=== PATIENT | male | born 1955 | race Caucasian/White ===

== ENCOUNTER → 2016-09-12 | Outpatient (CLI) | payer BC ==
[~2016-09-12] MED LIST: ASPI81TA28 PO; GLC/500 PO; OMEG10007 PO; SIMV40TA4 PO
[2016-09-12 10:43] LABS: BASO % 0.6 %; BASO ABS # 0.03 K/uL (0-0.2); COMPLETE YES; EOS % 7.4 %; HEMATOCRIT 48.5 % (42-52); IG% 0.2 %; LYMPH % 32.5 %; LYMPH ABS # 1.72 K/uL (1.2-3.4); MEAN CELL VOLUME 88.7 fL (80-100); MEAN CORPUSCULAR HEMOGLOBIN 30.7 pg (25-34); MEAN CORPUSCULAR HGB CONC 34.6 g/dl (32-36); MEAN PLATELET VOLUME 10.7 fL (7.4-10.4); MONO % 11.3 %; PLATELET COUNT 185 K/uL (130-400); RED BLOOD COUNT 5.47 M/uL (4.7-6.1)
[2016-09-12 10:50] LABS: ALT/SGPT 61 U/L (12-78); BLOOD UREA NITROGEN 17 mg/dl (7-18); BUN/CREATININE RATIO 16.9 (10-20); CARBON DIOXIDE 28 mmol/L (21-32); CHLORIDE 107 mmol/L (98-107); CHOLESTEROL 151 mg/dl (0-200); GLUCOSE 128 mg/dl (70-99); POTASSIUM 4.3 mmol/L (3.5-5.1); SODIUM 142 mmol/L (136-145); TRIGLYCERIDES 84 mg/dl (0-150); VERY LOW DENSITY LIPOPROT CALC 17 mg/dl
[2016-09-12 10:53] LABS: ALB/GLOB RATIO 1.4 (0.9-2); ALKALINE PHOSPHATASE 62 U/L (45-117); AST/SGOT 24 U/L (15-37); CHOLESTEROL/HDL RATIO 4.9; HDL CHOLESTEROL 31 mg/dl; LDL CHOLESTEROL CALCULATED 103 mg/dl
[2016-09-12 11:00] LABS: CALCIUM 8.8 mg/dl (8.5-10.1)
[2016-09-12 11:16] LABS: ESTIMATED AVERAGE GLUCOSE 120 mg/dl; HA1C FLAG Normal (Normal)
== END | disposition home or self-care (01) ==
LOC: C.LAB1850 09:01
PROVIDERS: ATTEND Nurse Practitioner Family
DX: E78.00 Pure hypercholesterolemia, unspecified (principal); E88.81 Metabolic syndrome and other insulin resistance; E66.3 Overweight; R73.9 Hyperglycemia, unspecified; F17.209 Nicotine dependence, unspecified, with unspecified nicotine-induced disorders

== ENCOUNTER → 2017-03-19 | Outpatient (CLI) | payer BC ==
[2017-03-19 09:46] LABS: ALT/SGPT 42 U/L (12-78); BLOOD UREA NITROGEN 17 mg/dl (7-18); BUN/CREATININE RATIO 19.7 (10-20); CALCIUM 8.5 mg/dl (8.5-10.1); CARBON DIOXIDE 28 mmol/L (21-32); CHLORIDE 109 mmol/L (98-107); CHOLESTEROL 128 mg/dl (0-200); CREATININE 0.87 mg/dl (0.60-1.40); GLUCOSE 124 mg/dl (70-99); SODIUM 143 mmol/L (136-145); TRIGLYCERIDES 105 mg/dl (0-150); VERY LOW DENSITY LIPOPROT CALC 21 mg/dl
[2017-03-19 09:49] LABS: ALB/GLOB RATIO 1.5 (0.9-2); ALKALINE PHOSPHATASE 52 U/L (45-117); AST/SGOT 18 U/L (15-37); CHOLESTEROL/HDL RATIO 4.1; HDL CHOLESTEROL 31 mg/dl; LDL CHOLESTEROL CALCULATED 76 mg/dl
== END | disposition home or self-care (01) ==
LOC: C.LAB1850 07:42
PROVIDERS: ATTEND Nurse Practitioner Family
DX: E78.00 Pure hypercholesterolemia, unspecified (principal); E88.81 Metabolic syndrome and other insulin resistance; R73.9 Hyperglycemia, unspecified

== ENCOUNTER 2017-05-24 11:42 | Emergency (ER) | payer OTHER ==
[~2017-05-24] VITALS: Ht 167.6 cm; Wt 87.0 kg
[~2017-05-24 11:42] MED LIST changes: +OSEL75CA12 PO
[2017-05-24 11:55] VITALS: TEMP 36.8; Ht 167.6 cm; Wt 87.0 kg
[2017-05-24] MEDS ORDERED: HYDROmorphone INJ 1 MG/ML SYR IV STA (12:55)
[2017-05-24] MEDS ORDERED: ONDANSETRON INJ 2 MG/ML 2 ML VIAL IV STA (12:55)
[2017-05-24] MEDS ORDERED: ACETAMINOPHEN 500 MG TAB PO STA (12:55)
[2017-05-24] MEDS ORDERED: SODIUM CHLORIDE 0.9% 500ML 500 ML IV STA (12:55)
[2017-05-24 13:26] LABS: BASO % 0.8 %; BASO ABS # 0.03 K/uL (0-0.2); EOS % 2.9 %; EOS ABS # 0.11 K/uL (0-0.5); LYMPH % 34.8 %; MEAN CELL VOLUME 85.4 fL (80-100); MEAN CORPUSCULAR HEMOGLOBIN 31.1 pg (25-34); MEAN CORPUSCULAR HGB CONC 36.4 g/dl (32-36); MEAN PLATELET VOLUME 10.3 fL (7.4-10.4); MONO % 8.8 %; MONO ABS # 0.33 K/uL (0.11-0.59); NEUT % 52.7 %; NEUT ABS # 1.97 K/uL (1.4-6.5); PLATELET COUNT 145 K/uL (130-400); RED CELL DISTRIBUTION WIDTH CV 13.1 % (11.5-14.5); WHITE BLOOD COUNT 3.74 K/uL (4.8-10.8)
[2017-05-24 13:43] LABS: ALBUMIN 3.6 gm/dl (3.4-5.0); CALCIUM 8.8 mg/dl (8.5-10.1); CREATININE 0.85 mg/dl (0.60-1.40); POTASSIUM 3.9 mmol/L (3.5-5.1)
[2017-05-24 13:46] LABS: TOTAL PROTEIN 6.9 gm/dl (6.4-8.2)
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
--- NOTE | 2017-05-24 14:28 | DIAGNOSTIC IMAGING REPORT ---
ABD/PELVIS WITHOUT FOR STONE CT DOSE: HISTORY: Flank pain Pt c/o abd pain TECHNIQUE: Multiaxial CT images of the abdomen and pelvis were performed without the use of intravenous and oral contrast according to the standard department stone protocol. A dose lowering technique was utilized adhering to the principles of ALARA. COMPARISON STUDY: None. FINDINGS: Minimal dependent basilar interstitial change. Configuration of liver spleen and pancreas are unremarkable. Left kidney has been surgically removed. Right kidney is negative for hydronephrosis. The right adrenal gland is unremarkable. Bowel pattern is nonobstructive. Bladder is midline. There is no free fluid within the pelvic cul-de-sac. Osseous structures are unremarkable. IMPRESSION: 1. Operative changes consistent with a prior left nephrectomy. 2. Study is otherwise unremarkable. The above report was generated using voice recognition software. It may contain grammatical, syntax or spelling errors. Electronically signed by: Dwayne Goode M.D. 05/24/2017 2:27 PM Dictated Date/Time: 05/24/2017 2:22 PM
[2017-05-24 14:34] VITALS: BP 137/84; PULSE 63; O2SAT 97
--- NOTE | 2017-05-24 14:35 | DIAGNOSTIC IMAGING REPORT ---
LUMBAR SPINE WITHOUT CT DOSE: 1409.79 mGy.cm HISTORY: Pain Pt c/o low back pain TECHNIQUE: Multiaxial CT images of the lumbar spine were performed and reformatted in the sagittal and coronal plane without the use of contrast. A dose lowering technique was utilized adhering to the principles of ALARA. COMPARISON: None. FINDINGS: No fractures. No subluxation. Paraspinal soft tissues are unremarkable. Disc spaces are well-preserved. IMPRESSION: Normal study The above report was generated using voice recognition software. It may contain grammatical, syntax or spelling errors. Electronically signed by: Dwayne Goode M.D. 05/24/2017 2:34 PM Dictated Date/Time: 05/24/2017 2:32 PM
[2017-05-24] MEDS ORDERED: LIDODERM (LIDOCAINE) PATCH 5% TD STA (14:42)
[2017-05-24] MEDS ORDERED: OXYC1TAB3 PO (14:44)
[2017-05-24] MEDS ORDERED: LDDP5 TD (14:45)
== END 2017-05-24 15:11 | disposition home or self-care (01) ==
LOC: C.EDB 11:43
DX: S39.012A Strain of muscle, fascia and tendon of lower back, initial encounter (principal); X58.XXXA Exposure to other specified factors, initial encounter; Z90.5 Acquired absence of kidney; Z79.82 Long term (current) use of aspirin; Z79.84 Long term (current) use of oral hypoglycemic drugs

== ENCOUNTER 2021-08-31 06:33 | Observation (INO) ==
--- NOTE | 2021-07-27 11:59 | PAT Medication Instructions ---
Medication Instructions Date of Service July 27, 2021 Home Medications Medication Instructions Recorded metformin 500 mg tablet 500 mg PO BID 90 Days #180 tab 01/30/21 ezetimibe 10 mg-simvastatin 80 mg 1 tab PO QPM #90 tab 01/31/21 tablet aspirin 81 mg tablet 81 mg PO QAM metformin 500 mg tablet 500 mg PO BID ezetimibe 10 mg-simvastatin 80 mg tablet 1 tab PO QPM omega 3-ihw-nem-fish oil 1,000 mg (120 mg-180 mg) capsule (Fish Oil) 1 cap PO BID tamsulosin 0.4 mg capsule (Flomax) 0.4 mg PO QPM STOP taking 2 weeks before surgery (or as soon as possible if surgery is within 2 weeks) omega 5-keo-cdq-fish oil 1,000 mg (120 mg-180 mg) capsule (Fish Oil) 1 cap PO BID DO NOT take the morning of surgery metformin 500 mg tablet 500 mg PO BID Take morning of surgery With a small sip of water, OTHERWISE NOTHING TO EAT OR DRINK AFTER MIDNIGHT: aspirin 81 mg tablet 81 mg PO QAM (continue as normal unless told otherwise by surgeon) Take evening before surgery metformin 500 mg tablet 500 mg PO BID ezetimibe 10 mg-simvastatin 80 mg tablet 1 tab PO QPM tamsulosin 0.4 mg capsule (Flomax) 0.4 mg PO QPM Other Notes If you have any questions please call us at [phone] or [phone] or [phone] or [phone]
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
[~2021-08-31 06:33] MED LIST changes: +ACETAMINOPHEN 500 MG TAB PO SCH; -ASPI81TA28 PO; +BUPIVACAINE 0.5 % 5 MG/1 ML PF 10ML VIAL ONE; +BUPIVACAINE LIPOSOME/PF 266 MG, BUPIVACAINE/EPINEPHRINE 50 ML, SODIUM CHLORIDE 0.9% 30 ... INFIL SCH; +FAMOTIDINE 20 MG TAB PO SCH; +GABAPENTIN 300 MG CAP PO SCH; -GLC/500 PO; +LR 500ML BOLUS, THEN 15ML/HR IV SCH; +LR 60ML/HR IV SCH; -OMEG10007 PO; -OSEL75CA12 PO; +ROPIVACAINE 0.5% 5 MG/ML 30 ML VIAL ONE; -SIMV40TA4 PO; +Scopolamine 1 MG TDSY TD SCH; +TRANEXAMIC ACID 1,000 MG **IV Intra-op IV SCH; +ceFAZolin 2000MG 2,000 MG/15 ML SYR IV SCH
--- NOTE | 2021-08-31 06:56 | History & Physical Bridge Note ---
Date of Service August 31, 2021 History & Physical Bridge Note I have examined the patient, reviewed the History & Physical and in the interval since the performance of the History & Physical I have noted the following changes of clinical significance: no changes noted
[2021-08-31] MEDS ORDERED: MIDAZOLAM HCL 1 MG/ML 2ML VIAL ONE (07:39)
[2021-08-31] MEDS ORDERED: fentaNYL citrate 100 MCG/2 ML VIAL ONE (07:40)
[2021-08-31] MEDS ORDERED: ONDANSETRON INJ 2 MG/ML 2 ML VIAL ONE (08:03)
[2021-08-31] MEDS ORDERED: dexAMETHasone 4 MG in SYRINGE 0 ML IV ONE (08:06)
[2021-08-31] MEDS ORDERED: DEXAMETHASONE SOD INJ 4 MG/ML VIAL ONE ×3 (08:07)
[2021-08-31] MEDS ORDERED: ATROPINE SULFATE 0.1 MG/ML 10ML SYR IV PRN ×3 (08:30→12:27)
[2021-08-31] MEDS ORDERED: KETOROLAC 30 MG/ML VIAL IV PRN (08:30)
[2021-08-31] MEDS ORDERED: ePHEDrine sulfate 50 MG/ML AMP IV PRN ×3 (08:30→12:27)
[2021-08-31] MEDS ORDERED: HYDROmorphone INJ 2 MG/ML SYR/VIAL IV PRN (08:30)
[2021-08-31] MEDS ORDERED: BUPIVACAINE/EPINEPHRINE 0.25% 1:200,000 30 ML VIAL ONE (08:40)
[2021-08-31] MEDS ORDERED: BUPIVACAINE LIPOSOME 1.3% 266 MG/20 ML VIAL ONE (08:40)
[2021-08-31] MEDS ORDERED: SODIUM CHLORIDE 0.9% PF 50 ML VIAL ONE (08:40)
[2021-08-31] MEDS ORDERED: LIDOCAINE 2% 2 ML VIAL/AMP(20MG/ML) INFIL ONE (09:30)
[2021-08-31] MEDS ORDERED: GLYCOPYRROLATE 0.2 MG/ML VIAL ONE (09:30)
[2021-08-31] MEDS ORDERED: PROPOFOL IV EMULSION 10 MG/ML 20 ML VIAL IV ONE (09:30)
[2021-08-31] MEDS ORDERED: KETOROLAC 30 MG/ML VIAL ONE (10:40)
--- NOTE | 2021-08-31 10:51 | Post Operative Brief Note ---
PG Immediate Post Op with CF Date of Surgery August 31, 2021 Pre & Post Diagnosis Operation Date: 08/31/21 08:50 Pre-Op Diagnosis: Left knee osteoarthritis. Post-Op Diagnosis: Left knee osteoarthritis. I identified the patient and participated in the time-out.: Yes Procedure Operation Date: 08/31/21 08:50 Actual Procedures p Left Total Knee Replacement(Left) - Rolo Ponce MD Surgeon Rolo Ponce MD Gun Stock Checker Yosef Calixto PA-C Estimated Blood Loss 50 Findings Consistent with Post-Op Diagnosis Specimens Specimen Description: A. Left knee bone and tissue. Drains Terrazas Catheter
--- NOTE | 2021-08-31 11:07 | XRay Report ---
XR knee LT 1 or 2V routine CLINICAL HISTORY: Postoperative evaluation. COMPARISON: Knee radiographs July 28, 2021. FINDINGS: Alignment of the total left knee arthroplasty is anatomic. There is no periprosthetic frac ture or unexpected radiopaque foreign body. There are skin long. IMPRESSION: Expected findings following total left knee arthroplasty. ACT 112: Negative or not required by law. Electronically signed by: Kamari Perales M.D. 08/31/2021 11:05 AM
--- NOTE | 2021-08-31 11:21 | Anesthesiology Progress Note ---
Date of Service August 31, 2021 Anesthesia Post Procedure Vital Signs Vital Signs: Temp Pulse Pulse Resp BP Pulse Ox 08/31/21 11:05 64 14 148/88 H 100 08/31/21 10:55 66 18 116/80 100 08/31/21 10:48 36.3 C L 73 18 130/73 93 08/31/21 06:45 36.8 C 62 18 151/99 H 97 Transfer of Care Handoff Completed per policy Notes Mental Status: alert / awake / arousable and participated in evaluation Nausea / Vomiting: adequately controlled Pain: adequately controlled Airway Patency, RR, SpO2: stable & adequate BP & HR: stable & adequate Hydration State: stable & adequate Neuraxial Anesthesia: was administered and sensory block is resolving Anesthetic Complications: no major complications apparent and Pt Satisfied with anesthetic care
--- NOTE | 2021-08-31 12:27 | Anesthesiology Progress Note ---
Date of Service August 31, 2021 Anesthesia Post Procedure Vital Signs Vital Signs: Temp Pulse Pulse Resp BP Pulse Ox 08/31/21 12:15 53 L 12 120/76 97 08/31/21 12:00 67 18 146/83 H 100 08/31/21 11:45 56 L 14 110/82 94 08/31/21 11:30 36.2 C L 58 L 18 139/85 98 08/31/21 11:15 58 L 16 120/79 100 08/31/21 11:05 64 14 148/88 H 100 08/31/21 10:55 66 18 116/80 100 08/31/21 10:48 36.3 C L 73 18 130/73 93 08/31/21 06:45 36.8 C 62 18 151/99 H 97 Transfer of Care Handoff Completed per policy Notes Mental Status: alert / awake / arousable and participated in evaluation Nausea / Vomiting: adequately controlled Pain: adequately controlled Airway Patency, RR, SpO2: stable & adequate BP & HR: stable & adequate Hydration State: stable & adequate Neuraxial Anesthesia: was administered and sensory block is resolving Anesthetic Complications: no major complications apparent and Pt Satisfied with anesthetic care
[2021-08-31] MEDS ORDERED: bisacodyL 10 MG SUPP PR PRN (12:34)
[2021-08-31] MEDS ORDERED: GLUCAGON FOR INJ 1 MG VIAL SQ PRN (12:34)
[2021-08-31] MEDS ORDERED: NALOXONE HCL 0.4 MG/1 ML VIAL/CARP IV PRN (12:34)
[2021-08-31] MEDS ORDERED: PHARMACY GLYCEMIC MGMT CONSULT PRN (12:34)
[2021-08-31] MEDS ORDERED: GLUCOSE 40% GEL 15 GM TUBE PO PRN (12:34)
[2021-08-31] MEDS ORDERED: GLUCOSE 10 TABS/TUBE PO PRN (12:34)
[2021-08-31] MEDS ORDERED: DEXTROSE 50% 50 ML SYRINGE IV PRN (12:34)
[2021-08-31] MEDS ORDERED: ALUMINUM/MAGNESIUM SUSP 30 ML UDC PO PRN (12:34)
[2021-08-31] MEDS ORDERED: ONDANSETRON INJ 2 MG/ML 2 ML VIAL IV PRN (12:34)
[2021-08-31] MEDS ORDERED: HYDROmorphone INJ 0.5 MG/0.5 ML SYR IV PRN (12:34)
[2021-08-31] MEDS ORDERED: CARBOHYDRATES FOR HYPOGLYCEMIA PO PRN (12:34)
[2021-08-31] MEDS ORDERED: MAGNESIUM HYDROXIDE SUSP 30 ML UDC PO PRN (12:34)
[2021-08-31] MEDS ORDERED: METOCLOPRAMIDE HCL INJ 5 MG/ML 2 ML VIAL IV PRN (12:34)
[2021-08-31] MEDS ORDERED: oxyCODONE HCL IR 5 MG TAB (IMMEDIATE RELEASE) PO PRN (12:34)
[2021-08-31] MEDS: INSULIN ASPART PER UNIT SC SCH ×3 (13:51→21:30)
[2021-08-31] MEDS: SODIUM CHLORIDE 0.9% 1000ML 1,000 ML IV SCH ×2 (14:43→16:18)
[2021-08-31] MEDS: ACETAMINOPHEN 500 MG TAB PO SCH ×2 (16:11→21:35)
[2021-08-31] MEDS: Scopolamine CHECK PATCH PLACEMENT SCH (16:12)
[2021-08-31] MEDS: ceFAZolin 2000MG 2,000 MG/15 ML SYR IV SCH (16:15)
[2021-08-31] MEDS: ASCORBIC ACID 500 MG TAB PO SCH (16:15)
[2021-08-31] MEDS ORDERED: NovoLIN-N (NPH) PER UNIT CHARGE SQ SCH (16:30)
[2021-08-31] MEDS ORDERED: TRANEXAMIC ACID / 0.7% NACL 1,000 MG/100 ML BAG IV SCH (16:45)
[2021-08-31] MEDS: KETOROLAC TROMETHAMINE 15 MG/ML VIAL IV SCH (17:03)
--- NOTE | 2021-08-31 17:19 | Operative Report ---
PG Post Operative Report Pre & Post Diagnosis Operation Date: 08/31/21 08:50 Pre-Op Diagnosis: Left knee osteoarthritis. Post-Op Diagnosis: Left knee osteoarthritis. I identified the patient and participated in the time-out.: Yes Procedure Operation Date: 08/31/21 08:50 Actual Procedures p Left Total Knee Replacement(Left) - Rolo Ponce MD Surgeon Rolo Ponce MD [employer] Engine Firer Yosef Calixto PA-C Estimated Blood Loss 50 Findings Consistent with Post-Op Diagnosis Operative findings revealed advanced left knee tricompartment DJD with grade 4 [id number] disease in all 3 compartments most severe in the medial side. Moderate-sized joint effusion. Osteophytes in all 3 compartments. Specimens Left knee sent for pathology. Anesthesia Type Spinal MAC Complications none Disposition Accompanied Patient To Recovery: No Indications Patient is 66-year-old male had a several year history of gradual progressive increasing left knee pain and discomfort. She became unresponsive conservative treatment. He elected to see with surgical management. Description of Procedure Operative implants consist of: 1. Biomet Vanguard size 65 left posterior stabilized femoral component. 2. Biomet size 71 tibial tray. 3. 10 mm posterior stabilized polyethylene insert. 4. 25 x 8 all probably patella. The patient was taken to the operating, identified, placed on the operating table supine position protectors were properly padded. IV antibiotics arrived by anesthesia team. A spinal anesthetic had been implemented holding area. Terrazas catheter was placed in sterile fashion. Left thigh turn was then placed in the left lower extremities and prepped and draped in usual sterile fashion. The left leg was elevated exsanguinated with use of an Esmarch in terms playset 3 mmHg. An anterior approach left knee was then performed to longitudinal incision centered over the patella. Sharp dissection Through subcutaneous tissue down to the extensor mechanism. Medial parapatellar arthrotomy incision was made. Subperiosteal dissection was carried out medially. The fat pad was dissected from Neath patella tendon. Lateral patellofemoral ligament was released. Patella subluxated laterally and the knee was flexed. The osteophytes were taken off distal femur. The ACL and PCL were then released from distal femur and tibia subluxated anteriorly. External tibial alignment jig was then placed in the interface the tibia and adjusted 14 mm medially. Proximal tibial cut was made but remove about a millimeter bone from most deficient aspect medial tibial plateau. The tibia was then sized to a size 71. Attention drawn the femur. The distal femur was entered with a sharp drill bit intramedullary canal was suction. A left 6 degree valgus cutting guide was placed. Distal femoral cutting block was pinned in place but distal femoral cut was made to take an additional 3 mm bone off distal femur. The femur was then sized to a size 65. The AP cutting block was pinned parallel to the epicondylar axis which was 4 degrees of external rotation. The anterior cut, anterior chamfer, posterior cut, posterior chamfer cuts made. Box cutting guide was placed in just slight lateral box cut was made. The knee was flexed. The remnants of the medial and lateral menisci were excised. The osteophytes were taken off the posterior as pect the femur. A trial femoral component was placed. Tibial tray was pinned in maximum external rotation and the drill and stem punch were used to create defect in proximal tibia for the tibial tray. Knee was then trialed and the 10 mm insert fit most appropriately. Attention drawn the patella. The patella was cleaned of all soft tissues. Patella thickness measured 18 mm and cut down to 13. Was sized to a size 25 patella. The lug holes were drilled for the 25 patella. The lateral osteophyte was removed. Patella button was placed. Knee was taken through range of motion patella tracked nicely with no thumbs test. Attention drawn to placing permanent components. All trial components were removed. Bone plug was placed in the distal femur limit blood loss. Double batch Palacos G cement was mixed. A Biomet Vanguard size 65 left posterior stabilized femoral component, a size 71 tibial tray, 10 mm posterior stabilized polyethylene insert, and a 25 x 8 all followed patella then cemented in place. The knee was brought out into full extension until cement hardened. Final cement check was then performed. The pericapsular tissues were injected with 100 cc of combination of 20 cc of Exparel, 30 cc normal saline, 50 cc of quarter percent Marcaine with epinephrine. The patient did receive 1 g tranexamic acid but the tourniquet was let down for final turn time 60 minutes but hemostasis assured use electrocautery. The extensor neck was then closed with combination 1 PDS suture #1 Vicryl suture in [id number] fashion. Extensor mechanism checked found to be intact the subcutaneous tissue then closed with 2 Dexon suture buried knot fashion skin was closed skin long. Leg was cleaned and dried a sterile dressing was Xeroform, 4 x 4's, sterile cast padding, Geovany bandage were applied. Patient then transferred to the recovery room in stable condition. Patient tolerated procedure well and there are no complications. Yosef Calixto, my physician district administrative assistant, was present for the entire procedure. His assistance was essential and required for appropriate patient positioning, prepping and draping, surgical exposure, performing the technical details of the operation, placement the implants, closure of the wound, and placement of the sterile bandage. I attest to the content of the Intraoperative Record and any orders documented therein. Any exceptions are noted below.
[2021-08-31] MEDS: DOCUSATE SODIUM 100 MG CAP PO SCH (20:30)
[2021-08-31] MEDS: ASPIRIN 81 MG ECTAB PO SCH (20:30)
[2021-08-31] MEDS: OMEGA-3 (PURIFIED FISH OIL) 1 GM CAP PO SCH (20:30)
[2021-08-31] MEDS: TAPENTADOL HCL ER 50 MG TABCR PO SCH (20:35)
[2021-08-31] MEDS ORDERED: TAMSULOSIN HCL 0.4 MG CAP PO SCH (21:00)
[2021-08-31] MEDS ORDERED: EZETIMIBE 10 MG TABLET PO SCH (21:00)
[2021-08-31] MEDS ORDERED: EZETIMIBE/SIMVASTATIN 10/80MG TAB PO SCH (21:00)
[2021-08-31] MEDS ORDERED: SIMVASTATIN 80 MG TAB PO SCH (21:00)
[2021-08-31] MEDS ORDERED: SENNA 8.6 MG TAB PO SCH (21:00)
[2021-09-01] MEDS: KETOROLAC TROMETHAMINE 15 MG/ML VIAL IV SCH ×3 (00:03→12:11)
[2021-09-01] MEDS: ceFAZolin 2000MG 2,000 MG/15 ML SYR IV SCH (00:05)
[2021-09-01] MEDS: Scopolamine CHECK PATCH PLACEMENT SCH ×2 (00:31→07:46)
[2021-09-01] MEDS: ACETAMINOPHEN 500 MG TAB PO SCH ×2 (05:56→14:52)
[2021-09-01 06:37] LABS: Hematocrit (blood only) 38.9 % (42-52); Hemoglobin 13.8 g/dL (14.0-18.0); Mean Corpuscular Hemoglobin 30.4 pg (25-34); Mean Corpuscular Hgb Conc 35.5 g/dL (32-36); Mean Corpuscular Volume 85.7 fL (80-100); Platelet Count 160 K/uL (130-400); Red Blood Count 4.54 M/uL (4.7-6.1)
[2021-09-01 07:11] LABS: Estimated Average Glucose 131 mg/dl; Hemoglobin A1C 6.2 % (4.5-5.6)
[2021-09-01 07:14] LABS: Calcium 8.1 mg/dl (8.5-10.1); Creatinine Clr Calc Pharmacy 81.1 ml/min; Est GFR (Non-African American) 86.3 ml/min; Potassium 3.7 mmol/L (3.5-5.1)
[2021-09-01] MEDS: TAPENTADOL HCL ER 50 MG TABCR PO SCH (07:46)
[2021-09-01] MEDS: ASPIRIN 81 MG ECTAB PO SCH (07:46)
[2021-09-01] MEDS: ASCORBIC ACID 500 MG TAB PO SCH (07:46)
[2021-09-01] MEDS: DOCUSATE SODIUM 100 MG CAP PO SCH (07:46)
[2021-09-01] MEDS: OMEGA-3 (PURIFIED FISH OIL) 1 GM CAP PO SCH (07:46)
--- NOTE | 2021-09-01 08:40 | Progress Notes ---
DATE OF NOTE: 09/01/2021. SUBJECTIVE: A 66-year-old gentleman postoperative day 1 from left knee replacement. He is doing pre tty well. His pain is controlled. Had a reasonable night. No chest pain or shortness of breath. N ot feeling dizzy or lightheaded. OBJECTIVE: VITAL SIGNS: Temperature is 36.6. Vital signs are stable. GENERAL: Shows a pleasant middle-aged male. He is lying in bed this morning looks pretty comfortabl e. LUNGS: Clear to auscultation. HEART: Regular rate and rhythm. ABDOMEN: Soft, nontender, nondistended. EXTREMITIES: Grossly neurovascularly intact except as follows. Examination of the left leg reveals the dressing to be clean, dry and intact. He can dorsiflex and p lantarflex his foot appropriately. He is neurologically intact. LABORATORY: Hemoglobin 13.8. Hematocrit 38.9. Electrolytes are stable. ASSESSMENT: A 66-year-old gentleman postoperative day 1 from a left knee replacement, doing pretty w ell. Pain is controlled. He is neurologically intact. PLAN: 1. DVT prophylaxis include thigh-high TEDs, SCDs, and aspirin twice a day. 2. PT, OT, weightbear as tolerated. Left total knee protocol. 3. Pain control, doing well with current pain regimen. 4. Disposition: Plan is to discharge to home with some home health later today if he does okay in t herapy. Job ID: [id number]
[2021-09-01] MEDS ORDERED: metFORMIN HCL 500 MG TAB PO SCH (09:00)
[2021-09-01] MEDS ORDERED: MULTIVITAMIN TAB PO SCH (09:00)
[2021-09-01] MEDS ORDERED: DOCUSATE SODIUM/SENNA 50/8.6MG TAB PO SCH (09:00)
[2021-09-01] MEDS: INSULIN ASPART PER UNIT SC SCH ×2 (09:15→12:36)
== END 2021-09-01 15:43 | disposition home health service (06) ==
LOC: ASU 06:33 → PACUINP 06:33 → 3N 14:47

== ENCOUNTER 2022-09-29 23:41 | Inpatient (IN) ==
[2022-09-30] MEDS ORDERED: HYDROmorphone INJ 0.5 MG/0.5 ML SYR IV PRN ×2 (00:29→05:04)
[2022-09-30] MEDS ORDERED: ONDANSETRON INJ 2 MG/ML 2 ML VIAL IV STA (00:29)
[2022-09-30 00:50] LABS: Basophils # (auto) 0.03 K/uL (0-0.2); Basophils % (auto) 0.3 %; Eosinophils # (auto) 0.11 K/uL (0-0.50); Eosinophils % (auto) 1.2 %; Hematocrit (blood only) 43.2 % (42.0-52.0); Hemoglobin 15.6 g/dl (14.0-18.0); Immature Granulocytes # (auto) 0.04 K/uL (0.01-0.20); Immature Granulocytes % (auto) 0.4 %; Lymphocytes # (auto) 1.42 K/uL (1.2-3.4); Lymphocytes % (auto) 15.7 %; Mean Corpuscular Hemoglobin 31.1 pg (25.0-34.0); Mean Corpuscular Hgb Conc 36.1 g/dL (32.0-36.0); Mean Corpuscular Volume 86.2 fL (80.0-100.0); Mean Platelet Volume 11.1 fL (9.4-12.4); Monocytes # (auto) 0.85 K/uL (0.11-0.59); Monocytes % (auto) 9.4 %; Neutrophils # (auto) 6.57 K/uL (1.40-6.50); Platelet Count 168 K/uL (130-400); RDW Coefficient of Variation 13.1 % (11.5-14.5); RDW Standard Deviation 40.2 fL (36.4-46.3); Red Blood Count 5.01 M/uL (4.70-6.10); White Blood Count 9.02 K/ul (4.8-10.8)
[2022-09-30 00:55] LABS: Albumin Globulin Ratio 1.8 (0.9-2); Albumin Level 4.1 gm/dl (3.4-5.0); BUN Creatinine Ratio 14.3 (10-20); Bilirubin,Total 1.5 mg/dl (0.2-1.0); Calcium 8.4 mg/dl (8.6-10.3); Creatinine Clr Calc Pharmacy 66.1 ml/min; Est GFR (African American) 83.5 ml/min; Est GFR (Non-African American) 72.1 ml/min; Globulin 2.3 gm/dl (2.5-4.0); Potassium 3.5 mmol/L (3.5-5.1); Total Protein 6.4 gm/dl (6.0-8.3)
--- NOTE | 2022-09-30 01:00 | Emergency Department Note ---
Impression & Plan Acute cholecystitis ED Provider Note INFORMANT: Patient and ED PROVIDER(S): Sourav Quinn MD CHIEF COMPLAINT: Right flank pain PLAN: Disposition: Admitted Condition: Good Outpatient prescription management: none Referral: None MEDICAL DECISION MAKING: Patient presented because of right flank pain. IV was established. He was given Zofran and Dilaudid for symptom control. Blood work and urinalysis ordered. CT imaging ordered. CT imaging did reveal findings concerning for possible cholecystitis. Patient was reassessed. He was still mildly tender in the right upper quadrant. He was feeling better after the Dilaudid. His bilirubin is mildly elevated but has been in the past. Other LFTs and other blood work was unremarkable. Urinalysis was negative. The patient was sent for an ultrasound imaging. This did raise concerns for calculus cholecystitis. IV Mefoxin was ordered. Patient was hydrated. Consultation was made with general surgery, Sunny Montoya PA-C. He will consult on the patient and asked for medicine admission. Consultation was made with Dr. Ramy Owens of the [facility] service. Patient was evaluated in the ER for further management. Discussed with systems project manager After review of the information above and other included data, I feel the patient requires admission. Triage Nursing notes reviewed and agree them. Vital Signs: reviewed and remarkable for mild hypertension Prior /Outside records reviewed: none Differential diagnosis: Renal colic, UTI, appendicitis, diverticulitis, mesenteric ischemia, aortic pathology, infections, inflammatory bowel disease, PUD, biliary pathology, as well as other pathologies. Diagnostics, as interpreted by me: ECG: Twelve-lead ECG reveals sinus rhythm with frequent PVCs at 81 bpm and the pattern of bigeminy. Left atrial lodgment. Nonspecific ST abnormality. Cardiac Monitoring: Cardiac monitoring ordered by me: The patient was placed on continuous cardiac monitoring and observed. It revealed a sinus rhythm at 82 bpm with frequent PVCs. Occasional bigeminy. Medical decision rules: none Imaging studies: CT and ultrasound imaging as above HPI: The patient is a 67year old male who presents to the Emergency Room with complaints of acute right flank pain. This started about 3 hours ago and is persisting. The patient also notes the following associated symptoms, nausea and vomiting. The patient has tried ice and Bengay for relieving factors. Current pain is rated as 10 patient has a history of nephrectomy but is unsure which side. No history of kidney stones./10. Pt denies LOC, headache, fevers, chills, diaphoresis, visual changes, neck pain, chest pain, breathing difficulties, abdominal pain, melena, hematochezia, urinary symptoms, numbness, weakness, lymphadenopathy, rash, or other complaints. PAST MEDICAL HISTORY: See Below, high cholesterol, LVH PAST SURGICAL HISTORY: See Below, nephrectomy SOCIAL HISTORY: See Below, HOME MEDICATIONS: See Below ALLERGIES: See Below VITALS: See Below PHYSICAL EXAMINATION: GENERAL: Awake, alert, well-appearing, in no distress HENT: Normocephalic, atraumatic. Oropharynx unremarkable. EYES: Normal conjunctiva. Sclera non-icteric. NECK: Inspection normal. Non-tender. Supple. No nuchal rigidity. FROM. No masses. RESPIRATORY: Clear to auscultation. No wheezes. No rales. Normal respiratory effort. CARDIAC: Normal rate. Normal rhythm. No murmurs. No rubs. Extremities warm and well perfused. Pulses equal. No JVD. GI: Soft, non-distended. Right upper quad tenderness to palpation. No rebound or guarding. No masses. RECTAL: Deferred. MUSCULOSKELETAL: Atraumatic. Chest examination reveals no tenderness. The back is symmetrical on inspection without obvious abnormality. There is right CVA tenderness to palpation. No joint edema. LOWER EXTREMITIES: Calves are equal size bilaterally and non-tender. No edema. No discoloration. NEURO: Normal sensorium. No sensory or motor deficits noted. SKIN: No rash or jaundice noted. Past Med/Surg History Medical History Encounter for pre-operative examination Exertional dyspnea History of colonic polyps Hypercholesterolemia Lumbar spondylosis LVH (left ventricular hypertrophy) Osteoarthritis Prediabetes Solitary kidney, acquired Urinary incontinence Surgical History H/O kidney removal H/O total knee replacement History of appendectomy History of colonoscopy History of tooth extraction Family History Father Myocardial infarction Mother Myocardial infarction Other No family history of adverse response to anesthesia Denies family history of Colon cancer Ovarian cancer Prostate cancer Breast cancer Social History Smoking Status: Never smoker Tobacco Type: Smokeless Tobacco (Dip or Chew) Age Quit Using Tobacco: 16; Second Hand Exposure: No; Do You Dip or Chew Tobacco: Yes; Hx Alcohol Use: Yes Alcohol type: beer Alcohol Intake Frequency: Monthly or Less Hx Substance Use: No Preferred Language: Cape Verdean Communication Ability: Effective Visual Impairment: No Limitations Hearing Ability: Normal Senior Catering Sales Manager Required: No Beliefs That Will Affect Care: None marital status: Current Living Situation: Spouse current occupational status: retired current occupation: Maintenance at [employer] Feels Safe at Home: Yes Childhood Exposure to Second-Hand Smoke: No Diet: regular Diet Comment: regular Dental Care, Regularly: Yes Physical Activity Frequency: Does not Exercise Seatbelt Use: sometimes Sunscreen Use: No Assistive Devices: Glasses and Walker Allergies Allergies Allergy/AdvReac Type Severity Reaction Status Date / Time No Known Drug Allergies Allergy . Verified 09/30/22 01:14 Home Meds Home Medications Medication Instructions Recorded Confirmed omega 7-fhs-ibk-fish oil 1,000 mg 1 cap PO BID 05/19/21 09/30/22 (120 mg-180 mg) capsule (Fish Oil) Previous Rx's Medication Instructions Recorded acetaminophen 500 mg capsule 1,000 mg PO TID Pain 30 days #180 08/29/21 caps aspirin 81 mg tablet,delayed 81 mg PO BID 45 days #90 tabs 08/29/21 release (Enedina Low Dose Aspirin) metformin 500 mg tablet 500 mg PO BID 90 days #180 tabs 04/24/22 ezetimibe 10 mg tablet 10 mg PO DAILY #90 tabs 04/25/22 simvastatin 80 mg tablet 80 mg PO DAILY #90 tabs 04/25/22 tamsulosin 0.4 mg capsule (Flomax) 0.4 mg PO DAILY #90 caps 06/20/22 Results & Data (ED) Vital Signs Vital Signs - 24 hr 09/29/22 23:46 09/30/22 00:53 09/30/22 01:05 Temperature 36.9 C Temperature Source Temporal Artery Scan Pulse Rate 46 L 81 Pulse Rate [Apical] 85 Respiratory Rate 18 16 Respiratory Effort / Characteristics Non-Labored Spontaneous Respiratory Depth Normal Respiratory Pattern Regular Blood Pressure 185/80 H Blood Pressure [Right Arm] 143/72 H Blood Pressure Mean 115 Blood Pressure Mean [Right Arm] 95 Pulse Oximetry 97 94 Oxygen Delivery Method Room Air Room Air Sepsis Recent Fever Within 48 Hours No Sepsis New/Unexplained Change in Mental Status No Sepsis Action Taken by Nursing No Action Required 09/30/22 01:26 Temperature Temperature Source Pulse Rate Pulse Rate [Apical] 82 Respiratory Rate 16 Respiratory Effort / Characteristics Respiratory Depth Respiratory Pattern Blood Pressure Blood Pressure [Right Arm] 157/73 H Blood Pressure Mean Blood Pressure Mean [Right Arm] 101 Pulse Oximetry 94 Oxygen Delivery Method Room Air Sepsis Recent Fever Within 48 Hours Sepsis New/Unexplained Change in Mental Status Sepsis Action Taken by Nursing Laboratory Data 09/29/22 00:06 09/29/22 00:06 Lab Results 09/29/22 09/29/22 09/30/22 Range/Units 00:06 00:06 01:20 WBC 9.02 (4.8-10.8) K/ul RBC 5.01 (4.70-6.10) M/uL Hgb 15.6 (14.0-18.0) g/dl Hct 43.2 (42.0-52.0) % MCV 86.2 (80.0-100.0) fL MCH 31.1 (25.0-34.0) pg MCHC 36.1 H (32.0-36.0) g/dL RDW Std Deviation 40.2 (36.4-46.3) fL RDW Coeff of Nayeli 13.1 (11.5-14.5) % Plt Count 168 (130-400) K/uL MPV 11.1 (9.4-12.4) fL Immature Gran % (Auto) 0.4 % Neut % (Auto) 73.0 % Lymph % (Auto) 15.7 % [place] % (Auto) 9.4 % Eos % (Auto) 1.2 % Baso % (Auto) 0.3 % Neut # (Auto) 6.57 H (1.40-6.50) K/uL Lymph # (Auto) 1.42 (1.2-3.4) K/uL Barbour # (Auto) 0.85 H (0.11-0.59) K/uL Eos # (Auto) 0.11 (0-0.50) K/uL Baso # (Auto) 0.03 (0-0.2) K/uL Immature Gran # (Auto) 0.04 (0.01-0.20) K/uL Sodium 138 (136-145) mmol/L Potassium 3.5 (3.5-5.1) mmol/L Chloride 106 (98-107) mmol/L Carbon Dioxide 23 (21-32) mmol/L Anion Gap 9 (3-11) BUN 15 (6-23) mg/dl Creatinine 1.05 (0.6-1.4) mg/dl Est Cr Clr Drug Dosing 66.1 ml/min Est GFR ( Amer) 83.5 ml/min Est GFR (Non-Af Amer) 72.1 ml/min BUN/Creatinine Ratio 14.3 (10-20) Glucose 194 H (70-99(Fasting)) mg/dl Calcium 8.4 L (8.6-10.3) mg/dl Total Bilirubin 1.5 H (0.2-1.0) mg/dl AST 19 (13-39) U/L ALT 23 (7-52) U/L Alkaline Phosphatase 51 (34-104) U/L Total Protein 6.4 (6.0-8.3) gm/dl Albumin 4.1 (3.4-5.0) gm/dl Globulin 2.3 L (2.5-4.0) gm/dl Albumin/Globulin Ratio 1.8 (0.9-2) Lipase 44 (11-82) U/L Urine Color Dark Yellow Urine Appearance Clear (Clear) Urine pH 6.0 (4.5-7.5) Ur Specific [place] 1.028 (1.000-1.030) Urine Protein 1+ H (Negative) Urine Glucose (UA) 3+ H (Negative) Urine Ketones 1+ H (Negative) Urine Blood Negative (Negative) Urine Nitrite Negative (Negative) Urine Bilirubin Negative (Negative) Urine Urobilinogen Negative (Negative) Ur Leukocyte Esterase Negative (Negative) Urine WBC (Auto) 1-5 (0-5) /hpf Urine RBC (Auto) 0-4 (0-4) /hpf U Hyaline Cast (Auto) 1-5 (0-5) /lpf U Epithel Cells (Auto) 5-10 H (0-5) /lpf Urine Bacteria (Auto) Negative (Negative) Administered Medications Hydromorphone HCl (Hydromorphone Inj 0.5 Mg/0.5 Ml Syr) 0.5 mg IV Q15M PRN PRN Reason: Pain Stop: 07/09/23 00:28 Last Admin: 09/30/22 00:48 Dose: 0.5 mg Documented By: DIONISIO Discontinued Medications Ondansetron HCl (Ondansetron Inj 2 Mg/Ml 2 Ml Vial) 4 mg IV NOW STA Stop: 09/30/22 00:30 Last Admin: 09/30/22 00:48 Dose: 4 mg Documented By: DIONISIO Imaging Data Radiologist's Impression: Abdomen/Pelvis CT 09/30/22 00:29 Exam(s): CT ABDOMEN + PELVIS Without Contrast EXAM: CT Abdomen and Pelvis Without Intravenous Contrast CLINICAL HISTORY: Reason for exam: right flank pain, hx of nephrectomy. TECHNIQUE: Axial computed tomography images of the abdomen and pelvis without intravenous contrast. CTDI is 24.23 mGy and DLP is 1274.68 mGy-cm. Automated exposure control was utilized for the study. A dose lowering technique was utilized adhering to the principles of ALARA. COMPARISON: Dated 05/24/17 FINDINGS: Lung bases: Unremarkable. No mass. No consolidation. ABDOMEN: Liver: Unremarkable. Gallbladder and bile ducts: Cholelithiasis with mild stranding near the gallbladder neck, please correlate with any concern for acute cholecystitis. No ductal dilation. Pancreas: Unremarkable. No ductal dilation. Spleen: Unremarkable. No splenomegaly. Adrenals: Unremarkable. No mass. Kidneys and ureters: Status post left nephrectomy. No urolithiasis. Stomach and bowel: Unremarkable. No obstruction. No mucosal thickening. PELVIS: Appendix: No findings to suggest acute appendicitis. Bladder: Unremarkable. No stones. Reproductive: Unremarkable as visualized. ABDOMEN and PELVIS: Intraperitoneal space: Unremarkable. No free air. No significant fluid collection. Bones/joints: Degenerative change of the thoracolumbar spine. No acute fracture. No dislocation. Soft tissues: Unremarkable. Vasculature: Unremarkable. No abdominal aortic aneurysm. Lymph nodes: Unremarkable. No enlarged lymph nodes. IMPRESSION: 1. No urolithiasis. 2. Cholelithiasis with additional findings concerning for acute cholecystitis, right upper quadrant ultrasound can be considered for further evaluation as warranted. Electronically signed by: Thanh Esteves MD 09/30/22 01:39 AM Gallbladder Ultrasound 09/30/22 01:51 Exam(s): US GALLBLADDER EXAM: US Abdomen Limited, Gallbladder CLINICAL HISTORY: Reason for exam: CT concerning for cholecystitis. TECHNIQUE: Real-time ultrasound of the right upper quadrant with image documentation. COMPARISON: No relevant prior studies available. FINDINGS: Gallbladder: The gallbladder is distended with wall thickening and cholelithiasis. Common bile duct: Unremarkable as visualized. No stones. No dilation. Pancreas: Unremarkable as visualized. IMPRESSION: Findings compatible with acute calculous cholecystitis in the appropriate clinical setting. Electronically signed by: Thanh Esteves MD 09/30/22 02:32 AM Discharge Plan Visit Data Chief Complaint: Back Injury/Pain Stated Complaint: BACK PAIN ED Provider: Sourav Quinn Discharge Problem: Acute cholecystitis Forms Stand Alone Forms: [facility] Prescriptions Prescriptions: No Action acetaminophen 500 mg capsule 1,000 mg PO TID 30 Days Qty: 180 0RF Rx Instructions: Take 3 times per day to lessen pain. aspirin [Enedina Low Dose Aspirin] 81 mg tablet,delayed release (DR/EC) 81 mg PO BID 45 Days Qty: 90 0RF Rx Instructions: Take to prevent blood clots. metformin 500 mg tablet 500 mg PO BID 90 Days Qty: 180 3RF simvastatin 80 mg tablet 80 mg PO DAILY Qty: 90 3RF ezetimibe 10 mg tablet 10 mg PO DAILY Qty: 90 3RF tamsulosin [Flomax] 0.4 mg capsule 0.4 mg PO DAILY Qty: 90 1RF omega 7-vua-ouf-fish oil [Fish Oil] 1,000 mg (120 mg-180 mg) capsule 1 cap PO BID Referrals Referrals: John Floyd III, CRNP [Primary Care Provider] -
--- NOTE | 2022-09-30 01:40 | CT Scan Report ---
Exam(s): CT ABDOMEN + PELVIS Without Contrast EXAM: CT Abdomen and Pelvis Without Intravenous Contrast CLINICAL HISTORY: Reason for exam: right flank pain, hx of nephrectomy. TECHNIQUE: Axial computed tomography images of the abdomen and pelvis without intravenous contrast. CTDI is 24.23 mGy and DLP is 1274.68 mGy-cm. Automated exposure control was utilized for the study. A dose lowering technique was utilized adhering to the principles of ALARA. COMPARISON: Dated 05/24/17 FINDINGS: Lung bases: Unremarkable. No mass. No consolidation. ABDOMEN: Liver: Unremarkable. Gallbladder and bile ducts: Cholelithiasis with mild stranding near the gallbladder neck, please correlate with any concern for acute cholecystitis. No ductal dilation. Pancreas: Unremarkable. No ductal dilation. Spleen: Unremarkable. No splenomegaly. Adrenals: Unremarkable. No mass. Kidneys and ureters: Status post left nephrectomy. No urolithiasis. Stomach and bowel: Unremarkable. No obstruction. No mucosal thickening. PELVIS: Appendix: No findings to suggest acute appendicitis. Bladder: Unremarkable. No stones. Reproductive: Unremarkable as visualized. ABDOMEN and PELVIS: Intraperitoneal space: Unremarkable. No free air. No significant fluid collection. Bones/joints: Degenerative change of the thoracolumbar spine. No acute fracture. No dislocation. Soft tissues: Unremarkable. Vasculature: Unremarkable. No abdominal aortic aneurysm. Lymph nodes: Unremarkable. No enlarged lymph nodes. IMPRESSION: 1. No urolithiasis. 2. Cholelithiasis with additional findings concerning for acute cholecystitis, right upper quadrant ultrasound can be considered for further evaluation as warranted. Electronically signed by: Thanh Esteves MD 09/30/22 01:39 AM
[2022-09-30 01:49] LABS: Appearance Urine Clear (Clear); Bacteria Urine Automated Negative (Negative); Bilirubin Urine Negative (Negative); Blood Urine Negative (Negative); Color Urine Dark Yellow; Glucose Urine UA 3+ (Negative); Ketones Urine 1+ (Negative); Leukocyte Esterase Urine Negative (Negative); Nitrite Urine Negative (Negative); Protein Urine 1+ (Negative); RBC Urine Automated 0-4 /hpf (0-4); Specific Gravity Urine 1.028 (1.000-1.030); Urobilinogen Urine Negative (Negative)
--- NOTE | 2022-09-30 02:33 | Ultrasound Report ---
Exam(s): US GALLBLADDER EXAM: US Abdomen Limited, Gallbladder CLINICAL HISTORY: Reason for exam: CT concerning for cholecystitis. TECHNIQUE: Real-time ultrasound of the right upper quadrant with image documentation. COMPARISON: No relevant prior studies available. FINDINGS: Gallbladder: The gallbladder is distended with wall thickening and cholelithiasis. Common bile duct: Unremarkable as visualized. No stones. No dilation. Pancreas: Unremarkable as visualized. IMPRESSION: Findings compatible with acute calculous cholecystitis in the appropriate clinical setting. Electronically signed by: Thanh Esteves MD 09/30/22 02:32 AM
[2022-09-30] MEDS ORDERED: cefOXitin 2,000 MG/60 ML BAG IV STA (02:39)
[2022-09-30] MEDS ORDERED: SODIUM CHLORIDE 0.9% 1000ML 500 ML IV ONE (02:40)
[2022-09-30] MEDS ORDERED: SODIUM CHLORIDE 0.9% 1000ML 1,000 ML IV SCH (02:45)
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
[2022-09-30 03:25] LABS: Magnesium 1.7 mg/dl (1.7-2.4)
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
[2022-09-30] MEDS ORDERED: GLUCAGON FOR INJ 1 MG VIAL SQ PRN (05:04)
[2022-09-30] MEDS ORDERED: ONDANSETRON INJ 2 MG/ML 2 ML VIAL IV PRN ×2 (05:04→10:37)
[2022-09-30] MEDS ORDERED: GLUCOSE 10 TAB/TUBE PO PRN (05:04)
[2022-09-30] MEDS ORDERED: GLUCOSE 40% GEL 15 GM TUBE PO PRN (05:04)
[2022-09-30] MEDS ORDERED: DEXTROSE 50% 50 ML SYRINGE IV PRN (05:04)
[2022-09-30] MEDS ORDERED: CARBOHYDRATES FOR HYPOGLYCEMIA PO PRN (05:04)
[2022-09-30] MEDS: NSS + 20MEQ KCL 20 MEQ/1,000 ML BAG IV SCH ×2 (05:53→23:16)
[2022-09-30] MEDS ORDERED: MAGNESIUM SULFATE / D5W 1 GM/100 ML BAG IV ONE (06:13)
[2022-09-30] MEDS: INSULIN ASPART PER UNIT CHARGE SC SCH ×4 (06:26→20:50)
[2022-09-30] MEDS ORDERED: LIDOCAINE 1%/EPINEPHRINE 1:100,000 20 ML VIAL ONE ×2 (06:49→08:42)
[2022-09-30] MEDS: cefTRIAXone SODIUM 2,000 MG in DEXTROSE 5% 50 ML IV SCH (08:48)
--- NOTE | 2022-09-30 08:53 | Hospitalist Progress Note ---
Date of Service September 30, 2022 Assessment & Plan (1) Acute cholecystitis: Plan: Acute cholecystitis- To OR 09/30/22 Dr Weller for lap [email or web address] Ceftriaxone 2 g IV daily NSS + KCl 20 mill equivalents at 80 mils per hour Zofran 4 mg IV every 6 hours as needed Pantoprazole 40 mg IV daily Dilaudid 0.5 mg IV every 3 hours as needed for moderate to severe pain (2) Frequent PVCs: Plan: Frequent PVCs/occasional bigeminy/occasional trigeminy- Followed on telemetry Evaluated by cardiology in May 30 although stress is not reach 85%- predicted cardiology felt there was no warrant for increased risk assessment with interventional procedures and deemed his dyspnea to noncardiogenic at that time Replete electrolytes Consult cardiology (3) Hyperglycemia: Plan: Typically on metformin for metabolic syndrome, insulin sliding scale will be used while n.p.o. inpatient Patient's A1c has never been higher than mid sixes last check was 5.8 (4) BPH w urinary obs/LUTS: Plan: Patient is holding tamsulosin due to n.p.o. status Admission and Anticipated Discharge Date Admission Date: September 30, 2022 Subjective Patient seen postoperatively in the company of his he is still groggy from anesthesia Physical Exam Physical Exam: Reviewed from anesthesia but able to wake up and answer questions Cardiac exam sounds to be regular although history of bigeminy and trigeminy Lungs are clear without wheezes or crackles Results & Data Results & Data Vital Signs (Past 12 Hours) Vital Signs Temp Pulse Pulse Pulse Resp BP BP 09/30/22 08:11 98.8 F 79 18 144/71 H 09/30/22 05:33 82 09/30/22 05:18 81 09/30/22 05:10 100.0 F H 93 H 20 152/87 H 09/30/22 04:30 86 16 132/83 09/30/22 04:14 99 H 18 116/79 09/30/22 04:02 09/30/22 03:29 85 18 155/69 H 09/30/22 02:26 86 16 155/70 H 09/30/22 01:26 82 16 157/73 H 09/30/22 01:05 81 09/30/22 00:53 85 16 143/72 H 09/29/22 23:46 98.4 F 46 L 18 185/80 H Pulse Ox O2 Del Method 09/30/22 08:11 95 Room Air 09/30/22 05:33 09/30/22 05:18 09/30/22 05:10 96 Room Air 09/30/22 04:30 92 Room Air 09/30/22 04:14 93 Room Air 09/30/22 04:02 91 Room Air 09/30/22 03:29 95 Room Air 09/30/22 02:26 95 Room Air 09/30/22 01:26 94 Room Air 09/30/22 01:05 09/30/22 00:53 94 Room Air 09/29/22 23:46 97 Room Air PG Care Time/CCT Total # of Minutes Spent Total Time Spent with Patient: Total time spent is greater than 50% in coordination of care (as documented) at patient's floor/unit and/or counseling patient: Coding Level of Care Code None Diagnoses Acute cholecystitis K81.0 Frequent PVCs I49.3 Hyperglycemia R73.9 BPH w urinary obs/LUTS N40.1; N13.8
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
[2022-09-30] MEDS ORDERED: NALOXONE HCL 0.4 MG/1 ML VIAL/CARP IV PRN (10:37)
[2022-09-30] MEDS ORDERED: PROMETHAZINE HCL 12.5 MG in SODIUM CHLORIDE 0.9% 50 ML IV PRN (10:37)
[2022-09-30] MEDS ORDERED: ATROPINE SULFATE 0.1 MG/ML 10ML SYR IV PRN (10:37)
[2022-09-30] MEDS ORDERED: ePHEDrine sulfate 50 MG/ML AMP IV PRN (10:37)
[2022-09-30] MEDS ORDERED: HYDROmorphone INJ 1 MG/ML SYRINGE IV PRN (10:37)
[2022-09-30] MEDS ORDERED: LABETALOL HCL IV 5 MG/ML 20ML IV PRN (10:37)
[2022-09-30] MEDS ORDERED: FLUMAZENIL 0.1 MG/1 ML 10 ML VIAL IV PRN (10:37)
[2022-09-30] MEDS ORDERED: fentaNYL citrate PF 100 MCG/2 ML VIAL IV PRN (10:37)
[2022-09-30] MEDS ORDERED: fentaNYL citrate PF 100 MCG/2 ML VIAL ONE ×3 (10:39→11:38)
--- NOTE | 2022-09-30 10:45 | XCELERA ---
[id number]
[2022-09-30] MEDS ORDERED: PANTOprazole 40 MG in SYRINGE 0 ML IV SCH (11:00)
[2022-09-30] MEDS ORDERED: PHENYLEPHRINE 100MCG/ML 5ML SYR ONE (11:08)
[2022-09-30] MEDS ORDERED: SUGAMMADEX SODIUM 200 MG/2 ML VIAL IV ONE ×2 (11:08→12:31)
[2022-09-30] MEDS ORDERED: DEXAMETHASONE SOD INJ 4 MG/ML VIAL ONE (11:08)
[2022-09-30] MEDS ORDERED: PROPOFOL IV EMULSION 10 MG/ML 20 ML VIAL IV ONE ×2 (11:08→11:09)
[2022-09-30] MEDS ORDERED: ROCURONIUM BROMIDE 10 MG/ML 5 ML VIAL IV ONE (11:08)
[2022-09-30] MEDS ORDERED: SUCCINYLCHOLINE CHLORIDE 20 MG/ML 10 ML VIAL IV ONE (11:08)
[2022-09-30] MEDS ORDERED: ONDANSETRON INJ 2 MG/ML 2 ML VIAL ONE (11:08)
[2022-09-30] MEDS ORDERED: OPTIRAY 320 100ml IV PRN (11:10)
[2022-09-30] MEDS ORDERED: OPTIRAY 350 IV PRN (11:29)
--- NOTE | 2022-09-30 12:11 | Fluoroscopy Report ---
[place] cholangiogram OR CLINICAL HISTORY: Laparoscopic cholecystectomy. COMPARISON STUDY: CT of the abdomen and pelvis and right upper quadrant ultrasound September 30, 2022. FLUOROSCOPY TIME: 2.2 seconds. Ka, r: 0.55 mGy FLUOROSCOPIC IMAGES: 3 FINDINGS: Fluoroscopy was provided during intraoperative cholangiogram. No filling defects are identi fied within the common bile duct to suggest choledocholithiasis. There is opacification of the duoden um. Visualized portions of the opacified intrahepatic bile ducts are unremarkable. IMPRESSION: No evidence for choledocholithiasis. ACT 112: Negative or not required by law. Electronically signed by: Kamari Perales M.D. 09/30/2022 12:10 PM
--- NOTE | 2022-09-30 12:25 | Post Operative Brief Note ---
Immediate Post Op Note v1 Date of Surgery September 30, 2022 Pre & Post Diagnosis Operation Date: 09/30/22 09:00 Pre-Op Diagnosis: ACUTE CALCULOUS CHOLECYSTITIS, FREQUENT PVC's Post-Op Diagnosis: ACUTE CALCULOUS CHOLECYSTITIS, FREQUENT PVC's I identified the patient and participated in the time-out.: Yes Procedure Operation Date: 09/30/22 09:00 Actual Procedures p Laparoscopic Cholecystectomy with Cholangiogram(Not Applicable) - Rivera Weller MD, FACS Surgeon Rivera Weller MD, FACS Industrial Machine System Technician 0 Estimated Blood Loss 30 Findings Consistent with Post-Op Diagnosis
--- NOTE | 2022-09-30 12:48 | Operative Report ---
PG Post Operative Report Pre & Post Diagnosis Operation Date: 09/30/22 09:00 Pre-Op Diagnosis: ACUTE CALCULOUS CHOLECYSTITIS, FREQUENT PVC's Post-Op Diagnosis: ACUTE CALCULOUS CHOLECYSTITIS, FREQUENT PVC's I identified the patient and participated in the time-out.: Yes Procedure Operation Date: 09/30/22 09:00 Actual Procedures p Laparoscopic Cholecystectomy with Cholangiogram(Not Applicable) - Rivera Weller MD, FACS Patient was brought into the operating theater supine position general trach anesthesia the abdomen was prepped and I scrubbed solution properly draped a timeout was had patient identified patient had a very small umbilical hernia at the greater and palpating from externally could be probably a centimeter and most therefore we will transverse incision was made here deepened to subcutaneous tissue with a hemostat we entered the abdominal cavity easily followed by 5 mm trocar CO2 insufflated were then able to identify the patient had relatively free abdominal adhesions even though he had a bilateral chevron incision from previous colon resection and nephrectomy performed right realization we placed a 5 mm epigastric and two 5 mm subcostal ports with preemptive local analgesia 0.5% Marcaine we identified that at the chevron incision just right of the falciform ligament there were some adhesions we took us down so we can expose just lateral to the falciform ligament were replaced a 5 mm trocar gallbladder was visualized actually had this some staining of bile and there is a border between the gallbladder wall and the liver indicating significant disease and inflammation that was tense therefore the lateral trocar site that no upper quadrant was used elevated the gallbladder then we used an aspirating needle and was able to significantly decompressed the tense gallbladder so we were able to grasp it where the needle had gone into the gallbladder to prevent any significant seepage of stones or debris and we dissected our way up to the neck of the gallbladder and edema was significant that we was easily made with dissection to by stripping we then we identified the cystic duct that it was coming off the gallbladder at its takeoff using a 5- minute clip we placed the at approximately #4 urethral catheter was inserted on 3 abdominal wall and a 14 Angiocath placed making a small opening in the cystic duct Cholangiocath was position that showed free flow into the duodenum was we injected the dye with no obstruction. The cholangiocatheter was then removed the cystic duct was doubly clipped and divided the cystic artery was similar identified doubly clipped and divided the gallbladder was mostly bluntly removed from the posterior peritoneum although there was few areas of necrosis I can see the whitish discoloration in the gallbladder and the liver bed area small opening was made stones were actually extracted these were caviar type of stones most of them we was retracted at the end of the procedure the gallbladder was removed completely from the liver was placed in an Endopouch and taken out intact through the epigastric port we did cultures for aerobes and anaerobes. Once this been completed the subhepatic suprahepatic area was then suctioned copiously making sure hemostasis was excellent and the free as much of the bilirubinate of type stones as possible I elected to drain the area with #19 Imtiaz drain that was placed subhepatic exiting out the trocar site in the right upper quadrant distention skin edge with 2-0 silk. At this point we placed the camera prior to placing the Juni-Ibarra in the right upper quadrant to visualize her initial opening in the umbilical area and no adhesions were identified in the anterior abdominal wall there individual trocars removed under direct visualization the last umbilical trocar the opening and crater of the umbilical area we freed up sufficiently that we closed this with interrupted 0 Vicryl sutures x2 this was essentially a small umbilical hernia. Subcutaneous tissue was brought back with 3-0 Vicryl and 4-0 Monocryl Steri-Strips applied procedure was tolerated well by the patient estimate blood loss 5 cc Surgeon Rivera Weller MD, FACS Cupola Tapper Helper 0 Estimated Blood Loss 30 Findings Consistent with Post-Op Diagnosis Specimens Gallbladder and cannot Drains 19 Imtiaz Indications Acute cholecystitis Description of Procedure merda I attest to the content of the Intraoperative Record and any orders documented therein. Any exceptions are noted below.
--- NOTE | 2022-09-30 14:13 | Anesthesiology Progress Note ---
Date of Service September 30, 2022 Anesthesia Post Procedure Vital Signs Vital Signs: Temp Pulse Pulse Pulse Resp BP BP 09/30/22 13:48 36.7 C 64 18 121/76 09/30/22 13:35 88 20 133/71 09/30/22 13:25 95 H 22 129/65 09/30/22 13:15 36.6 C 89 18 138/66 09/30/22 13:05 89 22 128/71 09/30/22 12:55 94 H 22 148/81 H 09/30/22 12:45 36.1 C L 76 14 172/64 H 09/30/22 08:11 37.1 C 79 18 144/71 H 09/30/22 05:33 82 09/30/22 05:18 81 09/30/22 05:10 37.8 C H 93 H 20 152/87 H 09/30/22 04:30 86 16 132/83 09/30/22 04:14 99 H 18 116/79 09/30/22 04:02 09/30/22 03:29 85 18 155/69 H 09/30/22 02:26 86 16 155/70 H 09/30/22 01:26 82 16 157/73 H 09/30/22 01:05 81 09/30/22 00:53 85 16 143/72 H 09/29/22 23:46 36.9 C 46 L 18 185/80 H Pulse Ox O2 Del Method O2 Flow Rate 09/30/22 13:48 91 Nasal Cannula 3 09/30/22 13:35 94 Nasal Cannula 3 09/30/22 13:25 95 Nasal Cannula 3 09/30/22 13:15 94 Nasal Cannula 3 09/30/22 13:05 98 Oxymask 8 09/30/22 12:55 96 Oxymask 12 09/30/22 12:45 92 Oxymask 15 09/30/22 08:11 95 Room Air 09/30/22 05:33 09/30/22 05:18 09/30/22 05:10 96 Room Air 09/30/22 04:30 92 Room Air 09/30/22 04:14 93 Room Air 09/30/22 04:02 91 Room Air 09/30/22 03:29 95 Room Air 09/30/22 02:26 95 Room Air 09/30/22 01:26 94 Room Air 09/30/22 01:05 09/30/22 00:53 94 Room Air 09/29/22 23:46 97 Room Air Pain Intensity Right Lower Back: Pain Intensity: 5 Transfer of Care Handoff Completed per policy Notes Mental Status: alert / awake / arousable Patient Amnestic to Procedure: Yes Nausea / Vomiting: adequately controlled Pain: adequately controlled Airway Patency, RR, SpO2: stable & adequate BP & HR: stable & adequate Hydration State: stable & adequate Anesthetic Complications: no major complications apparent
[2022-09-30] MEDS: metroNIDAZOLE 500 MG/100 ML BAG IV SCH ×2 (14:41→16:55)
[2022-09-30] MEDS: NICOTINE 21 MG/24 HR TDSY TD SCH (18:00)
[2022-10-01] MEDS: metroNIDAZOLE 500 MG/100 ML BAG IV SCH ×2 (00:52→09:19)
[2022-10-01] MEDS: NSS + 20MEQ KCL 20 MEQ/1,000 ML BAG IV SCH (05:58)
[2022-10-01] MEDS ORDERED: oxyCODONE/ACETAMINOPHEN 5mg/325mg TAB PO PRN (07:17)
[2022-10-01 07:39] LABS: Albumin Globulin Ratio 1.4 (0.9-2); Albumin Level 3.5 gm/dl (3.4-5.0); BUN Creatinine Ratio 13.3 (10-20); Bilirubin,Total 1.1 mg/dl (0.2-1.0); Creatinine Clr Calc Pharmacy 72.4 ml/min; Est GFR (African American) 90.8 ml/min; Est GFR (Non-African American) 78.4 ml/min; Globulin 2.5 gm/dl (2.5-4.0); Magnesium 1.9 mg/dl (1.7-2.4); Potassium 4.3 mmol/L (3.5-5.1)
--- NOTE | 2022-10-01 08:13 | Surgery Progress Note ---
Date of Service October 01, 2022 Assessment & Plan (1) Acute cholecystitis: Plan: 10/01/22 POD#1 status post lap charanjit cholangiogram Patient is doing very well From my point of view the patient can be discharged today We will send him home on Cipro 500 mg twice daily for 5 days No driving for 3 days no lifting greater than 10 pounds for a week may take Motrin or Advil for pain Return to our office on Saturday for possible drain removal I discussed with the treating emergency room physician and he is having the patient mid on the hospital service. We recommend proceeding as follows: Provide analgesics Provide antiemetics Implement n.p.o. status Antibiotics in form of cefoxitin have been initiated by the emergency department and this should be continued Provide intravenous fluids for hydration Due to the acute cholecystitis we will tentatively plan on cholecystectomy with possible intraoperative cholangiogram with Dr. Weller I discussed with the admitting hospitalist and asked him to assist with medical optimization. I specifically asked him to address the patient's noted bigeminy on monitoring manager and also assist with diabetes management. Would recommend utilizing SCDs only for DVT prevention, no chemical means due to planned surgery Additional recommendations be forthcoming based on his clinical course as unfolds as well as operative findings. Admission and Anticipated Discharge Date Admission Date: September 30, 2022 Subjective Overall feels well tolerated diet yesterday has been up walking around Physical Exam Physical Exam: Alert coherent resting comfortably bed without any issues Sclera nonicteric Oral mucosa moist The abdomen completely benign Imtiaz drainage serous sanguinous nonbilious Results & Data Vital Signs (Past 12 Hours) Vital Signs Temp Pulse Pulse Resp BP Pulse Ox O2 Del Method 10/01/22 02:52 36.6 C 69 18 124/77 92 Room Air 10/01/22 00:05 73 09/30/22 22:59 36.7 C 69 18 124/63 92 Room Air
[2022-10-01 08:17] LABS: Basophils # (auto) 0.02 K/uL (0-0.2); Basophils % (auto) 0.2 %; Eosinophils # (auto) 0.05 K/uL (0-0.50); Eosinophils % (auto) 0.5 %; Immature Granulocytes # (auto) 0.04 K/uL (0.01-0.20); Immature Granulocytes % (auto) 0.4 %; Lymphocytes # (auto) 1.38 K/uL (1.2-3.4); Lymphocytes % (auto) 13.6 %; Mean Corpuscular Hemoglobin 31.3 pg (25.0-34.0); Mean Corpuscular Hgb Conc 35.9 g/dL (32.0-36.0); Mean Corpuscular Volume 87.1 fL (80.0-100.0); Mean Platelet Volume 11.7 fL (9.4-12.4); Monocytes # (auto) 0.91 K/uL (0.11-0.59); Neutrophils # (auto) 7.76 K/uL (1.40-6.50); Neutrophils % (auto) 76.3 %; Platelet Count 150 K/uL (130-400); Platelet Estimate Normal (Normal); RDW Coefficient of Variation 13.2 % (11.5-14.5); RDW Standard Deviation 41.7 fL (36.4-46.3); Red Blood Count 4.48 M/uL (4.70-6.10); White Blood Count 10.16 K/ul (4.8-10.8)
[2022-10-01 08:18] LABS: Estimated Average Glucose 128 mg/dl; Hemoglobin A1C 6.1 % (4.5-5.6)
[2022-10-01] MEDS: cefTRIAXone SODIUM 2,000 MG in DEXTROSE 5% 50 ML IV SCH (08:24)
[2022-10-01] MEDS: NICOTINE 21 MG/24 HR TDSY TD SCH (08:25)
[2022-10-01] MEDS: INSULIN ASPART PER UNIT CHARGE SC SCH ×2 (08:25→12:15)
[2022-10-01] MEDS ORDERED: PANTOprazole 40 MG TAB PO SCH (11:00)
--- NOTE | 2022-10-01 12:54 | Discharge Summary ---
Date of Service October 01, 2022 Admission HPI Per Admitting Provider The patient is a 67-year-old male with a past medical history including LVH, abnormal stress testing, dysmetabolic syndrome X, hypercholesterolemia, diabetes mellitus and BPH with LUTS. Patient presents to the emergency department with complaint of intermittent right flank pain present over the past couple months, which significantly acutely worsened earlier this evening. Significant laboratories: Potassium 3.5, glucose 194, total bilirubin 1.5 CT scan abdomen pelvis suggestive of acute cholecystitis. Ultrasound the right upper quadrant consistent with acute calculus cholecystitis From the ED the patient received the following: Zofran 4 mg IV, Dilaudid 0.5 mg IV, cefoxitin 2 g IV, normal saline 500 mL bolus, followed by 125 mill per hour infusion Principal Diagnosis acalculous cholecystitis s/p cholecystectomy Discharge Exam Patient awake alert appropriate still with some abdominal pain drains in place patient voiced understanding midodrine is used or manipulated at home Tolerating regular diet Discharge Data Allergies Allergy/AdvReac Type Severity Reaction Status Date / Time No Known Drug Allergies Allergy . Verified 09/30/22 01:14 Consultations 09/30/22 05:04 Consult Cardiology Routine 09/30/22 21:32 Consult General Surgery Routine Procedures Performed Operation Date: 09/30/22 09:00 Actual Procedures p Laparoscopic Cholecystectomy with Cholangiogram(Not Applicable) - Rivera Weller MD, FACS Ordered Studies 09/30/22 00:29 CT Abd and Pelvis [CT abd pelvis wo con] Stat 09/30/22 01:51 US gallbladder Stat 09/30/22 09:00 FL cholangiogram OR Routine Hospital Course (1) Acute cholecystitis: Acute cholecystitis- OR 09/30/22 Dr Weller for lap charanjit Ceftriaxone 2 g IV daily will be transition to Cipro 500 twice daily for 5-day Tramadol for pain control as needed Follow-up with surgery office in 2 days postdischarge for drain removal (2) Frequent PVCs: Frequent PVCs/occasional bigeminy/occasional trigeminy- Followed on telemetry Evaluated by cardiology in May 30 although stress is not reach 85%- predicted cardiology felt there was no warrant for increased risk assessment wi interventional procedures and deemed his dyspnea to noncardiogenic at that time Cardiogram with preserved ejection fraction recommend follow-up with electrophysiology as an outpatient Dr. Castellano (3) Hyperglycemia: Typically on metformin for metabolic syndrome, A1c has never been higher than mid sixes last check was 5.8 (4) BPH w urinary obs/LUTS: tamsulosin Total Time Total Time Spent Total Time Spent (In Minutes): It required greater than 30 minutes to prepare this patient for discharge Discharge Plan Discharge Items Patient Disposition: Home - Self-Care Reason For Visit: ACUTE CALCULOUS CHOLECYSTITIS, FREQUENT PVC's Discharge Diagnosis: Acute cholecystitis status post laparoscopic cholecystectomy Bigeminy and trigeminy noted as cardiac rhythm Activity: Per Instructions section Non-emergency contact: Surgeon and Cycle Analyst Call non-emergency contact if: your symptoms worsen Follow-up/Referrals: John Floyd III, CRNP [Primary Care Provider] - 10/08/22 4:00 pm Rivera Weller MD, FACS [Surgeon] - (Call office to schedule an appointment with General Surgery on 10/03/22 to have your drain removed. ) Jose Clark MD [Physician] - Diet: Regular Addtl Attending Provider Instructions: On admission it was noted that you had some irregularity to her heartbeat. He was seen in consultation by cardiology during her hospital stay and had an echocardiogram which looked fairly normal. Because of the irregularity of her heartbeat though it would be recommended you follow-up with cardiology and this point will be made for you by the cardiology office she will be notified Addtl Key Cutter Provider Instructions: Surgical attending discharge recommendations Cipro 500 mg twice daily for 5 days No driving for 3 days no lifting greater than 10 pounds for a week may take Motrin or Advil for pain Return to our office on Saturday for possible drain removal Pending Studies at Discharge: No Stand-Alone Forms: My [facility] [employer], Smoking Cessation Medications and DC Order Prescriptions: New ciprofloxacin HCl [Cipro] 500 mg tablet 500 mg PO BID Qty: 10 0RF tramadol 50 mg tablet 50 - 100 mg PO TID PRN (Reason: pain) Qty: 20 0RF Continued acetaminophen 500 mg capsule 1,000 mg PO TID 30 Days Qty: 180 0RF Rx Instructions: Take 3 times per day to lessen pain. aspirin [Enedina Low Dose Aspirin] 81 mg tablet,delayed release (DR/EC) 81 mg PO BID 45 Days Qty: 90 0RF Rx Instructions: Take to prevent blood clots. metformin 500 mg tablet 500 mg PO BID 90 Days Qty: 180 3RF simvastatin 80 mg tablet 80 mg PO DAILY Qty: 90 3RF ezetimibe 10 mg tablet 10 mg PO DAILY Qty: 90 3RF tamsulosin [Flomax] 0.4 mg capsule 0.4 mg PO DAILY Qty: 90 1RF omega 7-xhz-dsb-fish oil [Fish Oil] 1,000 mg (120 mg-180 mg) capsule 1 cap PO BID Discharge Orders: Discharge Order (Routine); Ordered 10/01/22 Ordered By: Joel Prather/Other Patient Handouts: Prediabetes, 5 Steps for Eating Healthier Admission Data Admit Date/Time: 09/30/22 03:42 Attending Provider: Joel Shaw Admit Provider: Ramy Owens Primary Care Provider: John Floyd III Other Providers: Jose Clark ; Rivera Weller Coding Level of Care Code 84418 INP/OBS DISCH >30 MIN Diagnoses Acute cholecystitis K81.0 Frequent PVCs I49.3 Hyperglycemia R73.9 BPH w urinary obs/LUTS N40.1; N13.8
--- NOTE | 2022-10-02 08:10 | Electrocardiogram Report ---
Test Reason : Blood Pressure : / mmHG Vent. Rate : 081 BPM Atrial Rate : 081 BPM P-R Int : 140 ms QRS Dur : 088 ms QT Int : 382 ms P-R-T Axes : 026 -29 005 degrees QTc Int : 443 ms Sinus rhythm with frequent Premature ventricular complexes in a pattern of bigeminy Possible Left atrial enlargement Nonspecific ST abnormality Abnormal ECG When compared with ECG of 28-JUL-2021 12:09, Premature ventricular complexes are now Present QRS axis Shifted left Nonspecific T wave abnormality now evident in Inferior leads Confirmed by Jose Clark ([id number]) on 10/02/2022 8:09:49 AM Referred By: REFERRED SELF Confirmed By:Jose Clark
== END 2022-10-01 15:00 | disposition home or self-care (01) | DRG 418 ==
LOC: ED 23:41 → 4W 09-30 03:42 → SUATTDRO 09-30 03:42 → 4W 09-30 04:50

== ENCOUNTER 2023-01-21 19:04 | Inpatient (IN) ==
--- NOTE | 2023-01-21 19:29 | ED Triage Note ---
Date of Service January 21, 2023 History of Present Illness This patient was briefly evaluated while in triage. An abbreviated physical exam was performed. This patient is a 67-year-old Male who presents to the ED for evaluation of home COVID test + today came home from a golf trip feeling ill yesterday with weakness, chills "out of it" Physical Exam GENERAL: NAD CARDIOVASCULAR: RRR RESPIRATORY: CTA ABDOMEN: BS x 4. Nontender to palpation. Initial orders for labs and / or imaging were placed and patient was placed in the waiting area until a bed is available. Please see further documentation for the full ED course.
[2023-01-21 20:41] LABS: Adenovirus PCR Not Detected (NotDetected); Bordetella parapertussis PCR Not Detected (NotDetected); Bordetella pertussis PCR Not Detected (NotDetected); Chlamydia pneumoniae PCR Not Detected (NotDetected); Coronavirus 229E PCR Not Detected (NotDetected); Coronavirus HKU1 PCR Not Detected (NotDetected); Coronavirus NL63 PCR Not Detected (NotDetected); Coronavirus OC43PCR Not Detected (NotDetected); Human Metapneumovirus PCR Not Detected (NotDetected); Influenza A PCR Not Detected (NotDetected); Influenza B PCR Not Detected (NotDetected); Mycoplasma pneumoniae PCR Not Detected (NotDetected); Parainfluenza Virus 1 PCR Not Detected (NotDetected); Parainfluenza Virus 2 PCR Not Detected (NotDetected); Parainfluenza Virus 3 PCR Not Detected (NotDetected); Parainfluenza Virus 4 PCR Not Detected (NotDetected); Respiratory Syncytial VirusPCR Not Detected (NotDetected); Rhinovirus/Enterovirus PCR Not Detected (NotDetected)
[2023-01-21 20:51] LABS: Coronavirus CoV-2 (COVID19)PCR DETECTED (NotDetected)
[2023-01-21 21:23] LABS: Basophils # (auto) 0.02 K/uL (0.00-0.20); Basophils % (auto) 0.3 %; Eosinophils # (auto) 0.02 K/uL (0.00-0.50); Eosinophils % (auto) 0.3 %; Hematocrit (blood only) 45.9 % (42.0-52.0); Hemoglobin 16.2 g/dl (14.0-18.0); Immature Granulocytes # (auto) 0.02 K/uL (0.01-0.20); Immature Granulocytes % (auto) 0.3 %; Lymphocytes # (auto) 0.77 K/uL (1.20-3.40); Lymphocytes % (auto) 13.4 %; Mean Corpuscular Hemoglobin 30.9 pg (25.0-34.0); Mean Corpuscular Hgb Conc 35.3 g/dL (32.0-36.0); Mean Corpuscular Volume 87.4 fL (80.0-100.0); Mean Platelet Volume 11.1 fL (9.4-12.4); Monocytes % (auto) 13.9 %; Neutrophils # (auto) 4.11 K/uL (1.40-6.50); Neutrophils % (auto) 71.8 %; Platelet Count 128 K/uL (130-400); RDW Standard Deviation 41.2 fL (36.4-46.3); Red Blood Count 5.25 M/uL (4.70-6.10); White Blood Count 5.74 K/ul (4.8-10.8)
[2023-01-21 21:46] LABS: Alanine Aminotransferase 30 U/L (7-52); Albumin Level 4.7 gm/dl (3.4-5.0); Alkaline Phosphatase 53 U/L (34-104); Anion Gap 7 (3-11); Aspartate Aminotransferase 22 U/L (13-39); BUN Creatinine Ratio 12.2 (10-20); Bilirubin,Total 1.8 mg/dl (0.2-1.0); Blood Urea Nitrogen 12 mg/dl (6-23); Calcium 9.1 mg/dl (8.6-10.3); Carbon Dioxide 24 mmol/L (21-32); Chloride 103 mmol/L (98-107); Est GFR (African American) 90.8 ml/min; Est GFR (Non-African American) 78.4 ml/min; Globulin 2.4 gm/dl (2.5-4.0); Glucose 128 mg/dl (70-99(Fasting)); Sodium 134 mmol/L (136-145); Total Protein 7.1 gm/dl (6.0-8.3)
[2023-01-21] MEDS ORDERED: SODIUM CHLORIDE 0.9% 500 ML IV ONE (22:11)
[2023-01-21] MEDS ORDERED: ALBUT/IPRATROP 3MG/0.5MG NEB 3 ML VIAL NEB STA (22:18)
[2023-01-21 22:28] LABS: Creatine Kinase 32 U/L (30-223)
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
[2023-01-21] MEDS ORDERED: dexAMETHasone**PF** 10 MG/ML VIAL IV ONE (23:30)
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
--- NOTE | 2023-01-21 23:37 | Emergency Department Note ---
ED Visit Note I was consulted in regards to the patient's presentation and plan of care by the Advanced Practice Provider. I engaged in a detailed/meaningful discussion with the Advanced Practice Provider in regards to this patient's workup and plan of care. Please see the Advanced Practice Provider's note for full details of the patient encounter. I agree with the assessment and plan of Zee Esteves PA-C. Dwayne Hand, DO Emergency Medicine .
[2023-01-22] MEDS ORDERED: CARBOHYDRATES FOR HYPOGLYCEMIA PO PRN (00:38)
[2023-01-22] MEDS ORDERED: GLUCOSE 40% GEL 15 GM TUBE PO PRN (00:38)
[2023-01-22] MEDS ORDERED: ALBUTEROL HFA 8 GM INHALER INH PRN (00:38)
[2023-01-22] MEDS ORDERED: DEXTROSE 50% 50 ML SYRINGE IV PRN (00:38)
[2023-01-22] MEDS ORDERED: GLUCOSE 10 TAB/TUBE PO PRN (00:38)
[2023-01-22] MEDS ORDERED: GLUCAGON FOR INJ 1 MG VIAL SQ PRN (00:38)
[2023-01-22] MEDS ORDERED: ACETAMINOPHEN 325 MG TAB PO PRN (00:38)
[2023-01-22] MEDS ORDERED: ONDANSETRON INJ 2 MG/ML 2 ML VIAL IV PRN (00:38)
[2023-01-22 00:54] LABS: C Reactive Protein 6.67 mg/dl (0-0.5); Magnesium 1.8 mg/dl (1.7-2.4); Phosphorus 3.1 mg/dl (2.5-4.9)
[2023-01-22 04:21] LABS: Albumin Level 4.1 gm/dl (3.4-5.0); BUN Creatinine Ratio 13.6 (10-20); Bilirubin Direct 0.1 mg/dl (0-0.2); Bilirubin,Total 1.6 mg/dl (0.2-1.0); Calcium 8.7 mg/dl (8.6-10.3); Creatinine Clr Calc Pharmacy 67.3 ml/min; Est GFR (African American) 85.5 ml/min; Est GFR (Non-African American) 73.8 ml/min; Potassium 4.2 mmol/L (3.5-5.1); Total Protein 6.4 gm/dl (6.0-8.3)
[2023-01-22 04:29] LABS: Hematocrit (blood only) 43.6 % (42.0-52.0); Hemoglobin 15.1 g/dl (14.0-18.0); Mean Corpuscular Hemoglobin 30.4 pg (25.0-34.0); Mean Corpuscular Hgb Conc 34.6 g/dL (32.0-36.0); Mean Corpuscular Volume 87.7 fL (80.0-100.0); Mean Platelet Volume 11.3 fL (9.4-12.4); Platelet Count 112 K/uL (130-400); RDW Coefficient of Variation 12.9 % (11.5-14.5); RDW Standard Deviation 41.6 fL (36.4-46.3); Red Blood Count 4.97 M/uL (4.70-6.10); White Blood Count 4.09 K/ul (4.8-10.8)
--- NOTE | 2023-01-22 07:08 | XRay Report ---
XR chest 2V PA/lateral CLINICAL HISTORY: weakness, illness TECHNIQUE: 2 views of the chest were obtained. Comparison: Comparison is made to chest radiograph 07/28/2021 FINDINGS: No lines and tubes are seen. The cardiomediastinal silhouette is normal. Faint bibasilar airspace opa cities are seen. Possible trace left pleural effusion. IMPRESSION: Faint bibasilar airspace opacities which may represent atelectasis, pneumonia, and/or aspiration. Pos sible trace left pleural effusion. ACT 112: Negative or not required by law. Electronically signed by: Dar Almazan M.D. 01/22/2023 7:06 AM
--- NOTE | 2023-01-22 08:26 | Electrocardiogram Report ---
Test Reason : Blood Pressure : / mmHG Vent. Rate : 092 BPM Atrial Rate : 092 BPM P-R Int : 128 ms QRS Dur : 084 ms QT Int : 358 ms P-R-T Axes : 040 -28 014 degrees QTc Int : 442 ms Sinus rhythm with frequent Premature ventricular complexes Diffuse Minor Nonspecific ST abnormality Abnormal ECG When compared with ECG of 30-SEP-2022 01:02, PVCs no longer bigeminal Confirmed by Ulises Almaguer ([id number]) on 01/22/2023 8:26:14 AM Referred By: REFERRED SELF Confirmed By:Ulises Almaguer
[2023-01-22] MEDS ORDERED: dexAMETHasone 6 MG in SYRINGE 0 ML IV SCH (09:00)
[2023-01-22] MEDS ORDERED: DEXAMETHASONE SOD INJ 4 MG/ML VIAL IV SCH (09:00)
[2023-01-22] MEDS ORDERED: ASPIRIN 81 MG ECTAB PO SCH (09:00)
[2023-01-22] MEDS ORDERED: ENOXAPARIN INJ 40 MG/0.4 ML SYR SQ SCH (09:00)
[2023-01-22] MEDS ORDERED: TAMSULOSIN HCL 0.4 MG CAP PO SCH (09:00)
[2023-01-22] MEDS ORDERED: METOPROLOL SUCC 25MG EXT REL TAB PO SCH (09:00)
[2023-01-22] MEDS ORDERED: EZETIMIBE 10 MG TAB PO SCH (09:00)
[2023-01-22] MEDS ORDERED: SIMVASTATIN 80 MG TAB PO SCH (09:00)
[2023-01-22] MEDS: INSULIN ASPART PER UNIT CHARGE SC SCH ×2 (09:49→13:21)
--- NOTE | 2023-01-22 14:52 | Discharge Summary ---
Date of Service January 22, 2023 Admission HPI Per Admitting Provider Mark Candelaria is a 67yo male with history of HLP and Pre-DM presenting with acute Covid-19 infection. Patient reports beginning to feel ill yesterday 01/20/23 with weakness and fatigue as well as some confusion. He denies fever, chills, chest pain, cough or SOB. He denies nausea, vomiting or diarrhea. Patient with poor appetite and decreased oral intake over the last day. No additional complaints at this time. In the ER patient afebrile, HD stable and non-toxic in appearance Daughter is at bedside and assists with history ER Course: Albuterol 3mL neb NSS Principal Diagnosis COVID-19 Discharge Exam Constitutional WD/WN, vitals as above Respiratory normal respiratory effort, lungs clear to auscultation Cardiovascular RRR, no murmur, no edema Psychiatric A+Ox3, euthymic affect Discharge Data Allergies Allergy/AdvReac Type Severity Reaction Status Date / Time No Known Drug Allergies Allergy . Verified 12/25/22 10:34 Consultations 01/21/23 22:19 ED Decision to Admit Stat Hospital Course (1) COVID-19: 67yo male presenting with Covid-19 infection. Patient with generalized weakness, fatigue and confusion. Respiratory status has been stable, no hypoxia. Labs otherwise with mild hyponatremia with Na of 134. Platelets low at 128. Patient has been vaccinated + boosters. Uncertain if he has had Covid-19 infection before. He was noted to have extensive wheezing. Kept overnight and received IV dexamethasone q6hrs. He improved significantly by next afternoon and so discharged home to continue symptoms management. He was continue all his home medications and follow up with primary care in a week. (2) Prediabetes: (3) Hypercholesterolemia: Total Time Total Time Spent Total Time Spent (In Minutes): 30 Discharge Plan Discharge Items Patient Disposition: Home - Self-Care Reason For Visit: COVID-19, WEAKNESS AND CONFUSION Discharge Diagnosis: COVID-19, Metabolic Encephalopathy Condition on Discharge: Fair Activity: Resume your previous activity Non-emergency contact: Primary Care Provider Call non-emergency contact if: you have any medication questions and your symptoms worsen Follow-up/Referrals: John Floyd III, CRNP [Primary Care Provider] - Diet: Carb Count or DM1 Addtl Attending Provider Instructions: You were admitted for being weak and confused and tested positive for COVID-19. You received steroids and breathing treatment for wheezing. Your symptoms improved. Please follow up with your family physician in 3-4 days. Pending Studies at Discharge: No Stand-Alone Forms: My [facility], Smoking Cessation Medications and DC Order Prescriptions: New metoprolol succinate 25 mg Tablet Extended Release 24 Hr 25 mg PO DAILY Qty: 30 0RF Continued metformin 500 mg tablet 500 mg PO BID 90 Days Qty: 180 3RF simvastatin 80 mg tablet 80 mg PO DAILY Qty: 90 3RF ezetimibe 10 mg tablet 10 mg PO DAILY Qty: 90 3RF omega 1-ocv-uhi-fish oil [Fish Oil] 1,000 mg (120 mg-180 mg) capsule 1 cap PO BID solifenacin [Vesicare] 5 mg tablet 5 mg PO DAILY Qty: 30 2RF tamsulosin [Flomax] 0.4 mg capsule 0.4 mg PO DAILY Qty: 90 1RF acetaminophen 500 mg capsule 1,000 mg PO TID PRN (Reason: Pain) Rx Instructions: Take 3 times per day to lessen pain. aspirin [Enedina Low Dose Aspirin] 81 mg tablet,delayed release (DR/EC) 81 mg PO QAM Rx Instructions: Take to prevent blood clots. metoprolol succinate 25 mg tablet extended release 24 hr 25 mg PO QAM Rx Instructions: Take 1/2 tablet by mouth every day, if you are still having "skipped beats"/PVC's -- increase to 1 tablet by mouth daily Discharge Orders: Discharge Order (Routine); Ordered 01/22/23 Ordered By: Mary Gilman Admission Data Admit Date/Time: 01/21/23 22:43 Attending Provider: Mary Gilman Admit Provider: Brigid Ponce Primary Care Provider: John Floyd III Other Providers: Brigid Ponce Other Interventions: Discharge Summary Assessment (RN) Last Done: 01/22/23 16:57
== END 2023-01-22 18:22 | disposition home or self-care (01) | DRG 177 ==
LOC: ED 19:04 → SUATTDRO 22:43 → EDINP 22:43

== ENCOUNTER 2023-09-18 10:44 | Observation (INO) ==
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
[2023-09-18] MEDS: SODIUM CHLORIDE 0.9% 500 ML IV SCH (11:54)
[2023-09-18 12:09] LABS: Basophils # (auto) 0.03 K/uL (0.00-0.20); Basophils % (auto) 0.5 %; Eosinophils # (auto) 0.01 K/uL (0.00-0.50); Eosinophils % (auto) 0.2 %; Hemoglobin 16.5 g/dl (14.0-18.0); Immature Granulocytes # (auto) 0.02 K/uL (0.01-0.20); Immature Granulocytes % (auto) 0.3 %; Lymphocytes # (auto) 0.94 K/uL (1.20-3.40); Mean Corpuscular Hemoglobin 30.7 pg (25.0-34.0); Mean Corpuscular Hgb Conc 35.1 g/dL (32.0-36.0); Mean Corpuscular Volume 87.4 fL (80.0-100.0); Mean Platelet Volume 10.6 fL (9.4-12.4); Monocytes # (auto) 0.97 K/uL (0.11-0.59); Monocytes % (auto) 15.5 %; Neutrophils % (auto) 68.5 %; Platelet Count 150 K/uL (130-400); RDW Coefficient of Variation 12.5 % (11.5-14.5); RDW Standard Deviation 39.9 fL (36.4-46.3); Red Blood Count 5.38 M/uL (4.70-6.10); White Blood Count 6.27 K/ul (4.8-10.8)
[2023-09-18 12:17] LABS: Albumin Globulin Ratio 1.4 (0.9-2); Albumin Level 4.3 gm/dl (3.4-5.0); BUN Creatinine Ratio 15.4 (10-20); Bilirubin,Total 2.1 mg/dl (0.2-1.0); Creatinine Clr Calc Pharmacy 61.3 ml/min; Est GFR (African American) 72.8 ml/min; Est GFR (Non-African American) 62.8 ml/min; Globulin 3.1 gm/dl (2.5-4.0); Magnesium 1.9 mg/dl (1.7-2.4); Potassium 3.6 mmol/L (3.5-5.1); Total Protein 7.4 gm/dl (6.0-8.3)
--- NOTE | 2023-09-18 12:17 | XRay Report ---
XR chest 1V portable HISTORY: 68 years-old Male weakness acute weakness COMPARISON: 09/15/2023 TECHNIQUE: AP view of the chest FINDINGS: Cardiac silhouette is enlarged. Pulmonary vascular congestion with small left and trace right pleural effusions. No pneumothorax. Linear right basilar atelectasis/scarring. Progressive consolidation wit hin left lung base and left mid lung. Bones appear grossly intact. IMPRESSION: 1. Progressive left basilar and left midlung consolidation suspicious for pneumonia. 2. Cardiomegaly with pulmonary vascular congestion. ACT 112: Negative or not required by law. The above report was generated using voice recognition software. It may contain grammatical, syntax o r spelling errors. Electronically signed by: Joce Jack M.D. 09/18/2023 12:16 PM
[2023-09-18 12:23] LABS: Troponin I High Sensitivity 8.7 pg/ml (0-20)
[2023-09-18 12:32] LABS: Adenovirus PCR Not Detected (NotDetected); Bordetella parapertussis PCR Not Detected (NotDetected); Bordetella pertussis PCR Not Detected (NotDetected); Chlamydia pneumoniae PCR Not Detected (NotDetected); Coronavirus 229E PCR Not Detected (NotDetected); Coronavirus CoV-2 (COVID19)PCR Not Detected (NotDetected); Coronavirus HKU1 PCR Not Detected (NotDetected); Coronavirus NL63 PCR Not Detected (NotDetected); Coronavirus OC43PCR Not Detected (NotDetected); Human Metapneumovirus PCR Not Detected (NotDetected); Influenza A PCR Not Detected (NotDetected); Influenza B PCR Not Detected (NotDetected); Mycoplasma pneumoniae PCR Not Detected (NotDetected); Parainfluenza Virus 1 PCR Not Detected (NotDetected); Parainfluenza Virus 2 PCR Not Detected (NotDetected); Parainfluenza Virus 3 PCR Not Detected (NotDetected); Parainfluenza Virus 4 PCR Not Detected (NotDetected); Respiratory Syncytial VirusPCR Not Detected (NotDetected); Rhinovirus/Enterovirus PCR Not Detected (NotDetected)
[2023-09-18 12:32] LABS: Thyroid Stimulating Hormone 1.812 uIu/ml (0.300-4.500)
[2023-09-18] MEDS: ACETAMINOPHEN 1,000 MG/100 ML VIAL IV STA (13:02)
[2023-09-18] MEDS: AZITHROMYCIN 250 MG TAB PO ONE (13:05)
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
[2023-09-18] MEDS: cefTRIAXone SODIUM 2,000 MG/50 ML BAG IV STA (13:43)
[2023-09-18] MEDS ORDERED: ACETAMINOPHEN 325 MG TAB PO PRN (16:16)
--- NOTE | 2023-09-18 17:43 | Electrocardiogram Report ---
Test Reason : Blood Pressure : / mmHG Vent. Rate : 076 BPM Atrial Rate : 076 BPM P-R Int : 132 ms QRS Dur : 084 ms QT Int : 374 ms P-R-T Axes : 027 -22 -04 degrees QTc Int : 420 ms Normal sinus rhythm Nonspecific ST abnormality Abnormal ECG Confirmed by Jaylen Le ([id number]) on 09/18/2023 5:42:25 PM Referred By: REFERRED SELF Confirmed By:Morgan Le
[2023-09-18] MEDS: metFORMIN HCL 500 MG TAB PO SCH (18:29)
[2023-09-18] MEDS: OMEGA-3 (PURIFIED FISH OIL) 1 GM CAP PO SCH (20:56)
[2023-09-19] MEDS ORDERED: ALBUT/IPRATROP 3MG/0.5MG NEB 3 ML VIAL NEB PRN (07:53)
--- NOTE | 2023-09-19 07:53 | Hospitalist Progress Note ---
Date of Service September 19, 2023 Assessment & Plan (1) Pneumonia: Plan: Good history for pneumonia with rapid progression and changes in CXR (LLL) although given normal WBC and procalcitonin consider CT chest if not improving CXR noting pulm congestion, BNP 68. Procal 0.27 CXR in 4 weeks to ensure resolution Ceftriaxone + azithromycin, follow up blood cultures Sputum if productive Incentive spirometer, has been using Remains stable on room air Duonebs available if needed Presently on room air, no SOB/pleuritic pain reported Therapy evals pending given generalized weakness as cause for admission -- consult orders placed Procal 0.27, WBC 4.9k. Afebrile Lyme/anaplasmosis checked given LFT elevation (prior GB removal, denies drinking in past couple of days/no daily drinking) Lyme equivocal on initial screen, confirmatory testing NEGATIVE Peripheral smear negative for evidence of inclusion bodies, anaplasmosis/babesiosis pending (no rash on exam however) TSH wnl Patient was feeling better and wanting to go home initially however BLOOD CULTURES 1/4 bottles GPC in clusters. ID PCR reporting staph species Remains on Ceftriaxone IV, will switch Azithromycin to Doxy while tick testing/send out pending for atypical coverage for now. Afebrile/WBC wnl ECHO to be obtained given blood cultures for further eval (trop prior neg x 2 on admission, no CP/SOB reported at present time) Will obtain CT chest given report of ongoing pneumonia infections since his COVID-19 infection this past winter for further evaluation No rash/cellulitis on exam. Does have hx LEFT knee replacement w/ Dr Ponce in 2021 - no redness/swelling on exam but discussed to monitor. Can consider imaging if any sx Monitor labs/imaging/exam on repeat Awaiting therapy evaluations at this time (2) Prediabetes: Plan: Continued metformin on admission, last A1c 6.1 in April 2023 PLACING Metformin on HOLD as getting CT chest w/ contrast to prevent issues. BSG AC/HS ordered and can add SSI if needed Plan VTE Prophyalxis - Lovenox 40mg SQ daily continued continued inpatient stay given blood cultures and obtaining CT chest/echo for eval. Monitor for need for imaging of LEFT knee Admission and Anticipated Discharge Date Admission Date: September 18, 2023 Supervising Physician Co-Signing Physician Notes The patient was not seen by me. The chart was reviewed. Case discussed with EILEEN Sanchez. Agree with assessment and plan Subjective Evaluated this morning, resting in bed. Feeling improved since admission. No shortness of breath/cough/sputum production. Biofire negative. Has been using incentive spirometer every hour. Has not seen therapy but per nursing has been ambulating independently in the room. No rashes/tick bites. No daily drinking, has been several days since last drink,. He is hopeful for dc today if possible. Had NOT been on abx prior and discussed if does well with therapy can dc on Augmentin and return if any worsening. Questions/concerns addressed at this time. concerned w/ repeat pneumonia. also about concerns heart issue. Discussed pneumonia could be pre-disposed from prior COVID infection. Can consider ref to pulm as outpatient. Discussed also added tick testing and could send empiric doxy while send out testing pending . Has never had Lyme in past or tick related illness that he is aware of. Trop 4.5/8.7. BNP 68 as discussed and weighs against any heart failure, is able ot lay flat in bed and without any LE edema. Trop negative and no CP and weighs against cardiac etiology. THIS AFTERNOON< BLOOD CX 1/4 bottle GPC, staph on ID PCR. ECHO to be ordered but ?contaminant as discussed w/ patient. Will monitor ECHO. No CP. No rashes/cellulitis. Does have hx LEFT knee replacement in 2021 w/ Dr Ponce but no redness/cellulitis but occasional pain and will need to monitor. Repeat blood cultures to be obtained for completeness. Lyme screen initial equivocal, confirmation NEGATIVE. Peripheral smear w/o inclusion bodies but discussed anaplasmosis/babesiosis sent out and continued inpatient stay for evaluation Discussed w/ supervising provider and given source initially suspected PNA, will obtain CT chest for further eval. Questions/concerns addressed at this time. Physical Exam Physical Exam: General: 68yo male sitting up in bed, NAD, reports feeling better/wanting to go home today if possible, in room on second visit for update Head atraumatic, normocephalic, mmm, trachea midline Resp: even/unlabored, fine basilar crackles, no wheezing/rales, on room air CV: RRR, systolic murmur, no pitting edema/calf tenderness GI: +BS, soft/NT, prior scar from gallbladder surgery no clifton MSK/Neuro: nonfocal, answering questions appropriately, no facial droop/slurred speech, no confusion Psych: AOx3, cooperative Skin: no obvious rashes/lesions fungal appearance reported to toes, long Results & Data Results & Data Vital Signs (Past 12 Hours) Vital Signs Temp Pulse Resp BP Pulse Ox O2 Del Method 09/18/23 20:50 36.9 C 59 L 16 146/80 H 95 Room Air Laboratory Results 09/18/23 09/18/23 09/18/23 Range/Units 16:49 12:08 11:40 WBC (4.8-10.8) K/ul RBC (4.70-6.10) M/uL Hgb (14.0-18.0) g/dl Hct (42.0-52.0) % MCV (80.0-100.0) fL MCH (25.0-34.0) pg MCHC (32.0-36.0) g/dL RDW Std Deviation (36.4-46.3) fL RDW Coeff of Nayeli (11.5-14.5) % Plt Count (130-400) K/uL MPV (9.4-12.4) fL Immature Gran % (Auto) % Neut % (Auto) % Lymph % (Auto) % [place] % (Auto) % Eos % (Auto) % Baso % (Auto) % Neut # (Auto) (1.40-6.50) K/uL Lymph # (Auto) (1.20-3.40) K/uL [place] # (Auto) (0.11-0.59) K/uL Eos # (Auto) (0.00-0.50) K/uL Baso # (Auto) (0.00-0.20) K/uL Immature Gran # (Auto) (0.01-0.20) K/uL Sodium (136-145) mmol/L Potassium (3.5-5.1) mmol/L Chloride (98-107) mmol/L Carbon Dioxide (21-32) mmol/L Anion Gap (3-11) BUN (6-23) mg/dl Creatinine (0.6-1.4) mg/dl Est Cr Clr Drug Dosing ml/min Est GFR ( Amer) ml/min Est GFR (Non-Af Amer) ml/min BUN/Creatinine Ratio (10-20) Glucose (70-99(Fasting)) mg/dl Lactate 1.3 (0.4-2.0) mmol/L Calcium (8.6-10.3) mg/dl Magnesium (1.7-2.4) mg/dl Total Bilirubin (0.2-1.0) mg/dl AST (13-39) U/L ALT (7-52) U/L Alkaline Phosphatase (34-104) U/L Troponin I High Sens (0-20) pg/ml B-Natriuretic Peptide 70 (0-100) pg/ml Total Protein (6.0-8.3) gm/dl Albumin (3.4-5.0) gm/dl Globulin (2.5-4.0) gm/dl Albumin/Globulin Ratio (0.9-2) Procalcitonin 0.27 (0-0.5) ng/ml TSH (0.300-4.500) uIu/ml Adenovirus (PCR) (NotDetected) B. pertussis DNA (PCR) (NotDetected) B.parapertussis DNA PCR (NotDetected) C. pneumoniae DNA (PCR) (NotDetected) Coronavirus OC43 (PCR) (NotDetected) Coronavirus HKU1 (PCR) (NotDetected) Coronavirus 229E (PCR) (NotDetected) SARS-CoV-2 (PCR) (NotDetected) Coronavirus NL63 (PCR) (NotDetected) Human Metapneumovir PCR (NotDetected) Influenza Type A (PCR) (NotDetected) Influenza Type B (PCR) (NotDetected) M. pneumoniae (PCR) (NotDetected) Parainfluenza 1 (PCR) (NotDetected) Parainfluenza 2 (PCR) (NotDetected) Parainfluenza 3 (PCR) (NotDetected) Parainfluenza 4 (PCR) (NotDetected) RSV (PCR) (NotDetected) Entero/Rhino (PCR) (NotDetected) 09/18/23 09/18/23 Range/Units 11:31 11:29 WBC 6.27 (4.8-10.8) K/ul RBC 5.38 (4.70-6.10) M/uL Hgb 16.5 (14.0-18.0) g/dl Hct 47.0 (42.0-52.0) % MCV 87.4 (80.0-100.0) fL MCH 30.7 (25.0-34.0) pg MCHC 35.1 (32.0-36.0) g/dL RDW Std Deviation 39.9 (36.4-46.3) fL RDW Coeff of Nayeli 12.5 (11.5-14.5) % Plt Count 150 (130-400) K/uL MPV 10.6 (9.4-12.4) fL Immature Gran % (Auto) 0.3 % Neut % (Auto) 68.5 % Lymph % (Auto) 15.0 % [place] % (Auto) 15.5 % Eos % (Auto) 0.2 % Baso % (Auto) 0.5 % Neut # (Auto) 4.30 (1.40-6.50) K/uL Lymph # (Auto) 0.94 L (1.20-3.40) K/uL [place] # (Auto) 0.97 H (0.11-0.59) K/uL Eos # (Auto) 0.01 (0.00-0.50) K/uL Baso # (Auto) 0.03 (0.00-0.20) K/uL Immature Gran # (Auto) 0.02 (0.01-0.20) K/uL Sodium 133 L (136-145) mmol/L Potassium 3.6 (3.5-5.1) mmol/L Chloride 98 (98-107) mmol/L Carbon Dioxide 28 (21-32) mmol/L Anion Gap 7 (3-11) BUN 18 (6-23) mg/dl Creatinine 1.17 (0.6-1.4) mg/dl Est Cr Clr Drug Dosing 61.3 ml/min Est GFR ( Amer) 72.8 ml/min Est GFR (Non-Af Amer) 62.8 ml/min BUN/Creatinine Ratio 15.4 (10-20) Glucose 145 H (70-99(Fasting)) mg/dl Lactate (0.4-2.0) mmol/L Calcium 9.0 (8.6-10.3) mg/dl Magnesium 1.9 (1.7-2.4) mg/dl Total Bilirubin 2.1 H (0.2-1.0) mg/dl AST 50 H (13-39) U/L ALT 70 H (7-52) U/L Alkaline Phosphatase 60 (34-104) U/L Troponin I High Sens 8.7 (0-20) pg/ml B-Natriuretic Peptide (0-100) pg/ml Total Protein 7.4 (6.0-8.3) gm/dl Albumin 4.3 (3.4-5.0) gm/dl Globulin 3.1 (2.5-4.0) gm/dl Albumin/Globulin Ratio 1.4 (0.9-2) Procalcitonin (0-0.5) ng/ml TSH 1.812 (0.300-4.500) uIu/ml Adenovirus (PCR) Not Detected (NotDetected) B. pertussis DNA (PCR) Not Detected (NotDetected) B.parapertussis DNA PCR Not Detected (NotDetected) C. pneumoniae DNA (PCR) Not Detected (NotDetected) Coronavirus OC43 (PCR) Not Detected (NotDetected) Coronavirus HKU1 (PCR) Not Detected (NotDetected) Coronavirus 229E (PCR) Not Detected (NotDetected) SARS-CoV-2 (PCR) Not Detected (NotDetected) Coronavirus NL63 (PCR) Not Detected (NotDetected) Human Metapneumovir PCR Not Detected (NotDetected) Influenza Type A (PCR) Not Detected (NotDetected) Influenza Type B (PCR) Not Detected (NotDetected) M. pneumoniae (PCR) Not Detected (NotDetected) Parainfluenza 1 (PCR) Not Detected (NotDetected) Parainfluenza 2 (PCR) Not Detected (NotDetected) Parainfluenza 3 (PCR) Not Detected (NotDetected) Parainfluenza 4 (PCR) Not Detected (NotDetected) RSV (PCR) Not Detected (NotDetected) Entero/Rhino (PCR) Not Detected (NotDetected) Diagnostic Findings Chest X-Ray 09/18/23 11:21 XR chest 1V portable HISTORY: 68 years-old Male weakness acute weakness COMPARISON: 09/15/2023 TECHNIQUE: AP view of the chest FINDINGS: Cardiac silhouette is enlarged. Pulmonary vascular congestion with small left and trace right pleural effusions. No pneumothorax. Linear right basilar atelectasis/scarring. Progressive consolidation within left lung base and left mid lung. Bones appear grossly intact. IMPRESSION: 1. Progressive left basilar and left midlung consolidation suspicious for pneumonia. 2. Cardiomegaly with pulmonary vascular congestion. ACT 112: Negative or not required by law. The above report was generated using voice recognition software. It may contain grammatical, syntax or spelling errors. Electronically signed by: Joce Jack M.D. 09/18/2023 12:16 PM PG Care Time/CCT Total # of Minutes Spent Total Time Spent with Patient: Total time spent is greater than 50% in coordination of care (as documented) at patient's floor/unit and/or counseling patient: Coding Level of Care Code 50039 SUB INP/OBS CARE 3/50MIN Diagnoses Pneumonia J18.9 Prediabetes R73.03
[2023-09-19 08:36] LABS: Basophils # (auto) 0.03 K/uL (0.00-0.20); Basophils % (auto) 0.6 %; Eosinophils # (auto) 0.15 K/uL (0.00-0.50); Hematocrit (blood only) 40.6 % (42.0-52.0); Hemoglobin 14.7 g/dl (14.0-18.0); Immature Granulocytes # (auto) 0.02 K/uL (0.01-0.20); Immature Granulocytes % (auto) 0.4 %; Lymphocytes # (auto) 1.13 K/uL (1.20-3.40); Lymphocytes % (auto) 22.6 %; Mean Corpuscular Hemoglobin 31.1 pg (25.0-34.0); Mean Corpuscular Hgb Conc 36.2 g/dL (32.0-36.0); Mean Platelet Volume 10.7 fL (9.4-12.4); Monocytes # (auto) 0.98 K/uL (0.11-0.59); Monocytes % (auto) 19.6 %; Neutrophils # (auto) 2.68 K/uL (1.40-6.50); Neutrophils % (auto) 53.8 %; Platelet Count 135 K/uL (130-400); RDW Coefficient of Variation 12.6 % (11.5-14.5); RDW Standard Deviation 39.5 fL (36.4-46.3); Red Blood Count 4.72 M/uL (4.70-6.10); White Blood Count 4.99 K/ul (4.8-10.8)
[2023-09-19 08:49] LABS: Albumin Globulin Ratio 1.5 (0.9-2); Albumin Level 3.5 gm/dl (3.4-5.0); BUN Creatinine Ratio 15.4 (10-20); Bilirubin,Total 1.4 mg/dl (0.2-1.0); Calcium 8.2 mg/dl (8.6-10.3); Creatinine Clr Calc Pharmacy 78.8 ml/min; Est GFR (African American) 98.6 ml/min; Est GFR (Non-African American) 85.1 ml/min; Globulin 2.4 gm/dl (2.5-4.0); Magnesium 1.8 mg/dl (1.7-2.4); Potassium 3.7 mmol/L (3.5-5.1); Total Protein 5.9 gm/dl (6.0-8.3)
[2023-09-19] MEDS: EZETIMIBE 10 MG TAB PO SCH (08:56)
[2023-09-19] MEDS: TAMSULOSIN HCL 0.4 MG CAP PO SCH (08:56)
[2023-09-19] MEDS: OXYBUTYNIN CHLORIDE XL 5 MG TABCR PO SCH (08:56)
[2023-09-19] MEDS: SIMVASTATIN 80 MG TAB PO SCH (08:56)
[2023-09-19] MEDS: CYANOCOBALAMIN (B-12) 2,500 MCG TABLET PO SCH (08:56)
[2023-09-19] MEDS: ASPIRIN 81 MG ECTAB PO SCH (08:56)
[2023-09-19] MEDS: AZITHROMYCIN 250 MG TAB PO SCH (08:57)
[2023-09-19] MEDS: METOPROLOL SUCC 25MG EXT REL TAB PO SCH (08:57)
[2023-09-19 11:44] LABS: Lyme Screen Rflx Confirmation Equivocal (Negative)
[2023-09-19 11:51] LABS: A calco-baum cmplx NotReported Not Detected (NotDetected); Bact fragilis Not Reported Not Detected (NotDetected); Blood Culture Id Panel See PCR Comment (NotDetected); C auris Not Reported Not Detected (NotDetected); Calbicans Not Reported Not Detected (NotDetected); Candida glabrata Not Reported Not Detected (NotDetected); Candida krusei Not Reported Not Detected (NotDetected); Cneoformans/gatti Not Reported Not Detected (NotDetected); Cparapsilosis Not Reported Not Detected (NotDetected); E cloacae compx Not Reported Not Detected (NotDetected); Efaecalis Not Reported Not Detected (NotDetected); Efaecium Not Reported Not Detected (NotDetected); Enterobacterales Not Reported Not Detected (NotDetected); Escherichia coli Not Reported Not Detected (NotDetected); H influenzae Not Reported Not Detected (NotDetected); K aerogenes Not Reported Not Detected (NotDetected); Koxytoca Not Reported Not Detected (NotDetected); Kpneumoniae grp Not Reported Not Detected (NotDetected); Lmonocyt Not Reported Not Detected (NotDetected); N meningitidis Not Reported Not Detected (NotDetected); P aeruginosa Not Reported Not Detected (NotDetected); Proteus spp Not Reported Not Detected (NotDetected); Salmonella spp Not Reported Not Detected (NotDetected); Smarcescens Not Reported Not Detected (NotDetected); Staph lugdunensis Not Reported Not Detected (NotDetected); Staph spp. Not Reported DETECTED (NotDetected); Staphaureus Not Reported Not Detected (NotDetected); Staphepi Not Reported Not Detected (NotDetected); Stenmaltophilia Not Reported Not Detected (NotDetected); Strep agal(GrpB) Not Reported Not Detected (NotDetected); Strep pneum Not Reported Not Detected (NotDetected); Strep pyog (GrpA) Not Reported Not Detected (NotDetected); Strep spp Not Reported Not Detected (NotDetected)
[2023-09-19 11:54] LABS: Staphylococcus spp. DETECTED (NotDetected)
[2023-09-19 12:18] LABS: Lyme Ab IgG 2nd Tier Confirm Negative (Negative); Lyme Ab IgM 2nd Tier Confirm Negative (Negative)
[2023-09-19] MEDS: cefTRIAXone SODIUM 2,000 MG/50 ML BAG IV SCH (13:30)
[2023-09-19] MEDS: OPTIRAY 320 100ml IV ONE (13:57)
--- NOTE | 2023-09-19 14:15 | CT Scan Report ---
CT chest diagnostic w con CLINICAL HISTORY: positive blood cultures, repeat pneumonia, eval TECHNIQUE: Multidetector row helical CT of the chest was performed with intravenous contrast. Coronal and sagittal reformations were obtained. Automated dose lowering techniques and/or adjustment accord ing to patient size were utilized for this exam. CT DOSE: 823.67 mGy.cm Comparison: Comparison is made to chest radiograph 09/18/2023 FINDINGS: Lungs and pleura: There is atelectasis in the bilateral lower lobes and scattered groundglass and con solidative opacities in the lingula. Trace left pleural effusion is seen. Heart and pericardium: Cardiomegaly is seen with biatrial enlargement. Vessels: The pulmonary trunk is enlarged measuring 33 mm. Mediastinum and siddharth: Subcentimeter lymph nodes are seen. Chest wall and lower neck: Unremarkable. Abdomen: Patient is status post cholecystectomy. Bones: Degenerative changes in the thoracic spine. IMPRESSION: 1. Groundglass and consolidative opacities in the lingula are compatible with pneumonia. Reactive ly mph nodes are seen. 2. Pulmonary hypertension. 3. Additional findings as above. ACT 112: Negative or not required by law. Electronically signed by: Dar Almazan M.D. 09/19/2023 2:13 PM
--- NOTE | 2023-09-19 18:04 | XCELERA ---
[id number]
[2023-09-19] MEDS: DOXYCYCLINE HYCLATE 100 MG CAP PO SCH (20:04)
[2023-09-20 07:53] LABS: Basophils # (auto) 0.03 K/uL (0.00-0.20); Basophils % (auto) 0.8 %; Eosinophils # (auto) 0.38 K/uL (0.00-0.50); Eosinophils % (auto) 9.9 %; Hematocrit (blood only) 39.9 % (42.0-52.0); Hemoglobin 14.1 g/dl (14.0-18.0); Immature Granulocytes # (auto) 0.01 K/uL (0.01-0.20); Immature Granulocytes % (auto) 0.3 %; Lymphocytes # (auto) 1.33 K/uL (1.20-3.40); Lymphocytes % (auto) 34.7 %; Mean Corpuscular Hemoglobin 30.3 pg (25.0-34.0); Mean Corpuscular Hgb Conc 35.3 g/dL (32.0-36.0); Mean Corpuscular Volume 85.8 fL (80.0-100.0); Monocytes # (auto) 0.72 K/uL (0.11-0.59); Monocytes % (auto) 18.8 %; Neutrophils # (auto) 1.36 K/uL (1.40-6.50); Neutrophils % (auto) 35.5 %; Platelet Count 161 K/uL (130-400); RDW Coefficient of Variation 12.6 % (11.5-14.5); RDW Standard Deviation 39.6 fL (36.4-46.3); Red Blood Count 4.65 M/uL (4.70-6.10); White Blood Count 3.83 K/ul (4.8-10.8)
[2023-09-20 08:19] LABS: Albumin Globulin Ratio 1.4 (0.9-2); Albumin Level 3.5 gm/dl (3.4-5.0); BUN Creatinine Ratio 17.4 (10-20); Bilirubin,Total 0.8 mg/dl (0.2-1.0); Calcium 8.7 mg/dl (8.6-10.3); Est GFR (African American) 97.3 ml/min; Globulin 2.5 gm/dl (2.5-4.0)
--- NOTE | 2023-09-20 08:56 | Hospitalist Progress Note ---
Date of Service September 20, 2023 Assessment & Plan (1) Pneumonia: Plan: Good history for pneumonia with rapid progression and changes in CXR (LLL) although given normal WBC and procalcitonin consider CT chest if not improving CXR noting pulm congestion, BNP 70. Procal 0.27 CXR in 4 weeks to ensure resolution Ceftriaxone + azithromycin, follow up blood cultures Sputum if productive Incentive spirometer, has been using Remains stable on room air Duonebs available if needed Presently on room air, no SOB/pleuritic pain reported Therapy evals pending given generalized weakness as cause for admission -- consult orders placed Procal 0.27, WBC 4.9k. Afebrile Lyme/anaplasmosis checked given LFT elevation (prior GB removal, denies drinking in past couple of days/no daily drinking) Lyme equivocal on initial screen, confirmatory testing NEGATIVE Peripheral smear negative for evidence of inclusion bodies, anaplasmosis/babesiosis pending (no rash on exam however) TSH wnl Patient was feeling better and wanting to go home initially however BLOOD CULTURES 1/4 bottles GPC in clusters. ID PCR reporting staph species Remains on Ceftriaxone IV, will switch Azithromycin to Doxy while tick testing/send out pending for atypical coverage for now. Afebrile/WBC wnl ECHO to be obtained given blood cultures for further eval (trop prior neg x 2 on admission, no CP/SOB reported at present time) Will obtain CT chest given report of ongoing pneumonia infections since his COVID-19 infection this past winter for further evaluation No rash/cellulitis on exam. Does have hx LEFT knee replacement w/ Dr Ponce in 2021 - no redness/swelling on exam but discussed to monitor. Can consider imaging if any sx Monitor labs/imaging/exam on repeat Awaiting therapy evaluations at this time 09/19 CT chest w/ ground-glass and consolidative opacities in the lingula are compatible with pneumonia. Reactive lymph nodes are seen. Continues on Ceftriaxone/Doxy Anaplasmosis DNA pending (2) Prediabetes: Plan: Continued metformin on admission, last A1c 6.1 in April 2023 PLACING Metformin on HOLD as getting CT chest w/ contrast to prevent issues. BSG AC/HS ordered and can add SSI if needed Plan VTE Prophyalxis - Lovenox 40mg SQ daily continued continued inpatient stay given blood cultures and obtaining CT chest/echo for eval. Monitor for need for imaging of LEFT knee. Admission and Anticipated Discharge Date Admission Date: September 18, 2023 Results & Data Results & Data Vital Signs (Past 12 Hours) Vital Signs Temp Pulse Resp BP Pulse Ox O2 Del Method 09/20/23 08:15 36.9 C 76 18 119/74 97 Room Air 09/19/23 20:52 Room Air Laboratory Results 09/20/23 09/20/23 09/19/23 Range/Units 08:12 06:26 20:14 WBC 3.83 L (4.8-10.8) K/ul RBC 4.65 L (4.70-6.10) M/uL Hgb 14.1 (14.0-18.0) g/dl Hct 39.9 L (42.0-52.0) % MCV 85.8 (80.0-100.0) fL MCH 30.3 (25.0-34.0) pg MCHC 35.3 (32.0-36.0) g/dL RDW Std Deviation 39.6 (36.4-46.3) fL RDW Coeff of Nayeli 12.6 (11.5-14.5) % Plt Count 161 (130-400) K/uL MPV 11.0 (9.4-12.4) fL Immature Gran % (Auto) 0.3 % Neut % (Auto) 35.5 % Lymph % (Auto) 34.7 % Tompkins % (Auto) 18.8 % Eos % (Auto) 9.9 % Baso % (Auto) 0.8 % Neut # (Auto) 1.36 L (1.40-6.50) K/uL Lymph # (Auto) 1.33 (1.20-3.40) K/uL Tompkins # (Auto) 0.72 H (0.11-0.59) K/uL Eos # (Auto) 0.38 (0.00-0.50) K/uL Baso # (Auto) 0.03 (0.00-0.20) K/uL Immature Gran # (Auto) 0.01 (0.01-0.20) K/uL Sodium 138 (136-145) mmol/L Potassium 4.0 (3.5-5.1) mmol/L Chloride 106 (98-107) mmol/L Carbon Dioxide 26 (21-32) mmol/L Anion Gap 6 (3-11) BUN 16 (6-23) mg/dl Creatinine 0.92 (0.6-1.4) mg/dl Est Cr Clr Drug Dosing 78.0 ml/min Est GFR ( Amer) 97.3 ml/min Est GFR (Non-Af Amer) 84.0 ml/min BUN/Creatinine Ratio 17.4 (10-20) Glucose 125 H (70-99(Fasting)) mg/dl POC Glucose 119 H 137 H (70-99) mg/dl Calcium 8.7 (8.6-10.3) mg/dl Magnesium 2.0 (1.7-2.4) mg/dl Total Bilirubin 0.8 D (0.2-1.0) mg/dl AST 84 H (13-39) U/L ALT 106 H (7-52) U/L Alkaline Phosphatase 53 (34-104) U/L Total Protein 6.0 (6.0-8.3) gm/dl Albumin 3.5 (3.4-5.0) gm/dl Globulin 2.5 (2.5-4.0) gm/dl Albumin/Globulin Ratio 1.4 (0.9-2) Procalcitonin 0.16 (0-0.5) ng/ml Anaplasma Smear Babesia Smear Babesia microti DNA PCR Lyme Disease Screen (Negative) Lyme Disease IgG Ab (Negative) Lyme Disease IgM Ab (Negative) Staphylococcus sp PCR (NotDetected) Bld Cult ID Panel PCR (NotDetected) 09/19/23 09/19/23 09/18/23 Range/Units 16:44 07:55 12:08 WBC (4.8-10.8) K/ul RBC (4.70-6.10) M/uL Hgb (14.0-18.0) g/dl Hct (42.0-52.0) % MCV (80.0-100.0) fL MCH (25.0-34.0) pg MCHC (32.0-36.0) g/dL RDW Std Deviation (36.4-46.3) fL RDW Coeff of Nayeli (11.5-14.5) % Plt Count (130-400) K/uL MPV (9.4-12.4) fL Immature Gran % (Auto) % Neut % (Auto) % Lymph % (Auto) % Tompkins % (Auto) % Eos % (Auto) % Baso % (Auto) % Neut # (Auto) (1.40-6.50) K/uL Lymph # (Auto) (1.20-3.40) K/uL Tompkins # (Auto) (0.11-0.59) K/uL Eos # (Auto) (0.00-0.50) K/uL Baso # (Auto) (0.00-0.20) K/uL Immature Gran # (Auto) (0.01-0.20) K/uL Sodium (136-145) mmol/L Potassium (3.5-5.1) mmol/L Chloride (98-107) mmol/L Carbon Dioxide (21-32) mmol/L Anion Gap (3-11) BUN (6-23) mg/dl Creatinine (0.6-1.4) mg/dl Est Cr Clr Drug Dosing ml/min Est GFR ( Amer) ml/min Est GFR (Non-Af Amer) ml/min BUN/Creatinine Ratio (10-20) Glucose (70-99(Fasting)) mg/dl POC Glucose 117 H (70-99) mg/dl Calcium (8.6-10.3) mg/dl Magnesium (1.7-2.4) mg/dl Total Bilirubin (0.2-1.0) mg/dl AST (13-39) U/L ALT (7-52) U/L Alkaline Phosphatase (34-104) U/L Total Protein (6.0-8.3) gm/dl Albumin (3.4-5.0) gm/dl Globulin (2.5-4.0) gm/dl Albumin/Globulin Ratio (0.9-2) Procalcitonin (0-0.5) ng/ml Anaplasma Smear See Comment Babesia Smear See Comment Babesia microti DNA PCR Pending Lyme Disease Screen (Negative) Lyme Disease IgG Ab (Negative) Lyme Disease IgM Ab (Negative) Staphylococcus sp PCR DETECTED A (NotDetected) Bld Cult ID Panel PCR See PCR Comment (NotDetected) 09/18/23 Range/Units 11:40 WBC (4.8-10.8) K/ul RBC (4.70-6.10) M/uL Hgb (14.0-18.0) g/dl Hct (42.0-52.0) % MCV (80.0-100.0) fL MCH (25.0-34.0) pg MCHC (32.0-36.0) g/dL RDW Std Deviation (36.4-46.3) fL RDW Coeff of Nayeli (11.5-14.5) % Plt Count (130-400) K/uL MPV (9.4-12.4) fL Immature Gran % (Auto) % Neut % (Auto) % Lymph % (Auto) % Tompkins % (Auto) % Eos % (Auto) % Baso % (Auto) % Neut # (Auto) (1.40-6.50) K/uL Lymph # (Auto) (1.20-3.40) K/uL Tompkins # (Auto) (0.11-0.59) K/uL Eos # (Auto) (0.00-0.50) K/uL Baso # (Auto) (0.00-0.20) K/uL Immature Gran # (Auto) (0.01-0.20) K/uL Sodium (136-145) mmol/L Potassium (3.5-5.1) mmol/L Chloride (98-107) mmol/L Carbon Dioxide (21-32) mmol/L Anion Gap (3-11) BUN (6-23) mg/dl Creatinine (0.6-1.4) mg/dl Est Cr Clr Drug Dosing ml/min Est GFR ( Amer) ml/min Est GFR (Non-Af Amer) ml/min BUN/Creatinine Ratio (10-20) Glucose (70-99(Fasting)) mg/dl POC Glucose (70-99) mg/dl Calcium (8.6-10.3) mg/dl Magnesium (1.7-2.4) mg/dl Total Bilirubin (0.2-1.0) mg/dl AST (13-39) U/L ALT (7-52) U/L Alkaline Phosphatase (34-104) U/L Total Protein (6.0-8.3) gm/dl Albumin (3.4-5.0) gm/dl Globulin (2.5-4.0) gm/dl Albumin/Globulin Ratio (0.9-2) Procalcitonin (0-0.5) ng/ml Anaplasma Smear Babesia Smear Babesia microti DNA PCR Lyme Disease Screen Equivocal H (Negative) Lyme Disease IgG Ab Negative (Negative) Lyme Disease IgM Ab Negative (Negative) Staphylococcus sp PCR (NotDetected) Bld Cult ID Panel PCR (NotDetected) Diagnostic Findings Chest CT 09/19/23 13:04 CT chest diagnostic w con CLINICAL HISTORY: positive blood cultures, repeat pneumonia, eval TECHNIQUE: Multidetector row helical CT of the chest was performed with intravenous contrast. Coronal and sagittal reformations were obtained. Automated dose lowering techniques and/or adjustment according to patient size were utilized for this exam. CT DOSE: 823.67 mGy.cm Comparison: Comparison is made to chest radiograph 09/18/2023 FINDINGS: Lungs and pleura: There is atelectasis in the bilateral lower lobes and scattered groundglass and consolidative opacities in the lingula. Trace left pleural effusion is seen. Heart and pericardium: Cardiomegaly is seen with biatrial enlargement. Vessels: The pulmonary trunk is enlarged measuring 33 mm. Mediastinum and siddharth: Subcentimeter lymph nodes are seen. Chest wall and lower neck: Unremarkable. Abdomen: Patient is status post cholecystectomy. Bones: Degenerative changes in the thoracic spine. IMPRESSION: 1. Groundglass and consolidative opacities in the lingula are compatible with pneumonia. Reactive lymph nodes are seen. 2. Pulmonary hypertension. 3. Additional findings as above. ACT 112: Negative or not required by law. Electronically signed by: Dar Almazan M.D. 09/19/2023 2:13 PM PG Care Time/CCT Total # of Minutes Spent Total Time Spent with Patient: Total time spent is greater than 50% in coordination of care (as documented) at patient's floor/unit and/or counseling patient: Coding Diagnoses Pneumonia J18.9 Prediabetes R73.03
--- NOTE | 2023-09-20 13:39 | Discharge Summary ---
Date of Service September 20, 2023 Admission HPI Per Admitting Provider Mark Candelaria is a 68 year old male who presents to the ER with his nephew with generalized weakness and decreased appetite. Difficult to get accurate timeline of symptoms from the patient but he reports about 1 week of generalized weakness. His metoprolol was recently increased during his cardiology appointment on September 04 due to frequent PVCs. He started getting dizzy after this and came to the ER on Saturday (3 days ago) for this and his [id number] was reduced back which appeared to help his dizziness but his generalized weakness persisted and continued to get worse. Last night he was so weak he was unable to get out of his chair. He has not eaten for the last few days due to lack of appetite. No dysphagia, abdominal pain or odynophagia. No fever, chills, chest pain shortness of breath, sore throat, sinus pain or cough. No change in bowels or urinary symptoms. Similar symptoms in Fall with COVID pneumonia last year. He denies any alcohol for last couple of weeks. Usually drinks alcohol once a week with a few beers. Non smoker. Chews tobacco. Principal Diagnosis Pneumonia Discharge Exam General: 68yo male sitting up in chair, dressed and anxious for discharge, reporting worked with therapy and no needs at home, not in room head atraumatic, normocephalic, mmm, trachea midline resp even/unlabored, fine bibasilar crackles improved R>L, no wheezing/rales, talking in complete sentences, no tachypnea, on room air 97% CV: RRR, faint systolic murmur, no pitting edema, pulses present, calves non tender GI: +BS, soft/NT, no RUQ tenderness no clifton MSK/Neuro: nonfocal, strength equal throughout and answering questions appropriately ambulating in the room independently prior scar to LEFT knee noted, no decreased ROM/tenderness to palpation, no effusion, no warmth/redness Psych: AOx3, cooperative with exam Skin: no obvious rashes/lesions Discharge Data Allergies Allergy/AdvReac Type Severity Reaction Status Date / Time No Known Allergies Allergy Verified 09/18/23 15:12 Consultations 09/18/23 13:05 ED Decision to Admit Stat Ordered Studies Chest X-Ray 09/18/23 11:21 XR chest 1V portable HISTORY: 68 years-old Male weakness acute weakness COMPARISON: 09/15/2023 TECHNIQUE: AP view of the chest FINDINGS: Cardiac silhouette is enlarged. Pulmonary vascular congestion with small left and trace right pleural effusions. No pneumothorax. Linear right basilar atelectasis/scarring. Progressive consolidation within left lung base and left mid lung. Bones appear grossly intact. IMPRESSION: 1. Progressive left basilar and left midlung consolidation suspicious for pneumonia. 2. Cardiomegaly with pulmonary vascular congestion. ACT 112: Negative or not required by law. The above report was generated using voice recognition software. It may contain grammatical, syntax or spelling errors. Electronically signed by: Joce Jack M.D. 09/18/2023 12:[address] 09/19/23 13:04 CT chest diagnostic w con CLINICAL HISTORY: positive blood cultures, repeat pneumonia, eval TECHNIQUE: Multidetector row helical CT of the chest was performed with intravenous contrast. Coronal and sagittal reformations were obtained. Automated dose lowering techniques and/or adjustment according to patient size were utilized for this exam. CT DOSE: 823.67 mGy.cm Comparison: Comparison is made to chest radiograph 09/18/2023 FINDINGS: Lungs and pleura: There is atelectasis in the bilateral lower lobes and scattered groundglass and consolidative opacities in the lingula. Trace left pleural effusion is seen. Heart and pericardium: Cardiomegaly is seen with biatrial enlargement. Vessels: The pulmonary trunk is enlarged measuring 33 mm. Mediastinum and siddharth: Subcentimeter lymph nodes are seen. Chest wall and lower neck: Unremarkable. Abdomen: Patient is status post cholecystectomy. Bones: Degenerative changes in the thoracic spine. IMPRESSION: 1. Groundglass and consolidative opacities in the lingula are compatible with pneumonia. Reactive lymph nodes are seen. 2. Pulmonary hypertension. 3. Additional findings as above. ACT 112: Negative or not required by law. Electronically signed by: Dar Almazan M.D. 09/19/2023 2:13 PM ECHOCARDIOGRAM There is no evidence of a mass or vegetation. This does not rule out endocarditis. Left ventricular systolic function is moderately reduced (EF 40-45%). Grade I diastolic dysfunction. Mild aortic regurgitation. RVSP is normal. Borderline aortic root dilatation. Hospital Course (1) Pneumonia: Good history for pneumonia with rapid progression and changes in CXR (LLL) . Biofire testing negative. Procal 0.27 CXR noting pulm congestion, BNP 70. Trop negative x 2 Placed on Ceftriaxone/azithromycin on admission. Azithromycin switched to Doxyc ycline given possible anaplasmosis/tick bourne illness given leukopenia and AST/ALT elevation (no RUQ pain or elevation in TB/ALP, has not drank in a while and no daily drinking reported. prior s/p charanjit as well) No cough/sputum production but reported repeat issues since covid last winter Remained stable on room air but did obtain CT chest for further eval which noted Groundglass and consolidative opacities in the lingula are compatible with pneumonia. Reactive lymph nodes are seen. Continued on Ceftriaxone/Doxycycline and remained afebrile and without cough/sputum production or hypoxia. Did monitor overnight for 1/4 bottles on blood cultures with GPC, PCR w/ staph identified but did discuss w/ supervising provider given patient wanting to go home and likely contaminant but did repeat for completeness and obtained ECHO which did not show any evidence for vegetation. Continued use of incentive spirometer encouraged and patient has been using. Improvement in bibasilar crackles on exam, 97% on RA prior to or. Discussed with patient given prior replacement of his LEFT knee in 2021 but no redness/swelling or issue on exam but if develops any issue should return given bcx and will call if any further positives as patient wanting to go home/looks well and cleared by therapy without any needs at or AST/ALT slightly further elevated on repeat. Again, continuing doxy for tick coverage and discussed w/ patient to monitor portal and close follow up with primary care but would hold his statin/zetia until instructed to resume (had been continued on admission and could have worsened).Lyme testing equivocal on initial screening however confirmatory testing NEGATIVE. No evidence for inclusion bodies on peripheral smear and no rashes/lesions on exam and anaplas mosis DNA PCR and babesiosis pending at or as well as hepatitis panel/cmv/ebv for completeness. No alcohol recommended at or, cautious use of tylenol as needed (noting has also been without fever). Recommend patient get repeat CXR in 4 weeks to ensure resolution. Consideration for ref to pulm outpatient if needed. (2) Prediabetes: Continued metformin on admission, last A1c 6.1 in April 2023 PLACED Metformin on HOLD while getting CT chest and can resume metformin at dc outpt f/u pcp (3) Transaminitis: as above, alcohol avoidance recommended. no heavy tylenol use reported slight elevation but normal TB/ALP, is s/p charanjit,. No abdominal pain to hold statin/zetia at dc tick testing as outlined and continued doxy at dc ebv/cmv/hep panel added for completeness, can f/u. Does have aortic insuff on echo which is not new and could consider RPR testing. again, no rashes on exam or elevation in ALP but did ask lab to add to labs already drawn and can be followed up w/ PCP given aortic root dilation. (4) Left lower lobe pneumonia: noted on imaging, confirmed pneumonia on CT chest imaging. abx as outlined above and repeat cxr in 4 wks recommended/consideration for ref to pulm (5) Weakness: suspected 2nd to above, also had metoprolol recently adjusted for orthostasis an d to have outpt cards f/u. TSH wnl 1.8 trop negative x 2. no cp/sob reported ct imaging w/ pna as above and abx as outlined bcx as noted but appeared well/discussed w/ supervising provider Dr Ramos about need for further eval/continued inpatient stay given patient feeling well/wanting to go home and no evidence for seeding to his knee/urine sx and could be contaminant and ok'd for dc home on augmentin/doxy as above echo w/o wma (does note EF 40-45% compared to prior 50-55% however did also have his metoprolol cut back and will need outpt f/u cardiology about possible ablation vs trial antiarrhythmic therapy for frequent PVCs) did discuss w/ patient and about reduction in repeat ECHO as was ordered by Amber on saturday and encouraged to have closer follow up at dc to consider intervention w/ ablation vs antiarrythmic therapy discussed warning signs to return as well as f/u blood cultures at dc therapy evals undertaken, did amazing and ambulating in room independently and cleared for dc without needs Plan discharged home w/ , updated on plan prior to dc Rx to complete Augmentin/Doxy at dc, continue use of incentive spirometer and repeat cxr in 4 weeks. Rec consideration for ref to pulm if needed/ongoing issues tick testing to be followed up by PCP and extension of Doxycycline if needed as discussed with patient. hold statin/zetia for now given AST/ALT and avoidance of alcohol Repeat blood cultures pending/negative at this time and no further growth on bcx from 09/17. -no evidence for vegetation on ECHO (mild aortic regurgitation, not new and noted on ECHO august 2023) and can f/u for consideration for ablation for PVC if any reduction in EF on follow up care Total Time Total Time Spent Total Time Spent (In Minutes): 50 Discharge Plan Discharge Items Patient Disposition: Home - Self-Care Reason For Visit: PNEUMONIA Discharge Diagnosis: Pneumonia Goals: You have been hospitalized for an acute medical problem. During your stay at [facility], we have made an effort to correct the problem that brought you to the hospital while keeping you as comfortable as possible. Medications were used to bring your condition under control and your discharge instructions will include directions for any medications you should take after leaving the hospital. Please make sure you see your Primary Care Provider as part of your follow up plan. Activity: Resume your previous activity Non-emergency contact: Primary Care Provider Call non-emergency contact if: you have any medication questions, your symptoms worsen, your pain is not controlled, your pain is unusual for you and you have a fever Follow-up/Referrals: John Floyd III, CRNP [Primary Care Provider] - 09/23/23 1:00 pm Lelia Wilson PA-C [Physician Doctor Podiatric Medicine] - Diet: Heart Healthy Addtl Attending Provider Instructions: You have been hospitalized for generalized weakness and imaging confirmed pneumonia on cat scan. You have been treated with IV antibiotics and are being sent home on AUGMENTIN to take twice daily to complete total of 10 days (minus IV given in the hospital). You are also being sent on Doxycycline for atypical coverage while anaplasmosis (tick testing) is pending. Lyme testing was negative but given liver enzyme elevation and low white count on labs this is suspicious for anaplasmosis which is treated with the IV antibiotic you received as well as doxycycline and again this Doxycycline will be continued as well. You should hold your atorvastatin and zetia for the next week given elevated liver enzymes and avoid alcohol during this time. We did send out some viral testing which will take a while to come back and we are recommending close follow up with primary care this upcoming week to monitor your status after discharge. You should have repeat chest xray in 4 weeks to ensure resolution and if any ongoing issues can have referral to pulmonology as outpatient as this could be related to snf effects from covid as well. Your blood cultures from admission had 1 bottle of 4 that was identified as staph (NOT MRSA) and this is suspected to be potentially a contaminant. We performed ECHOCARDIOGRAM (ultrasound of the heart) which did not show any evidence for vegetation. Troponin (enzyme that measures damage to heart tissue) was NEGATIVE on multiple draws and BNP (level that can be related to heart failure) was also NOT elevated. Your LEFT knee looks great on examination but if you have any redness/swelling/increased pain in the setting of potential blood cultures this should be further evaluated. Repeat blood cultures have been negative but if return positive you will be notified and should return to the ER but again given exam/labs, this is suspected as contaminant. Therapy evaluations were undertaken and cleared you for return home. Please follow up with primary care in the next 7 days to monitor your progress after discharge. Please return to the ER with any fever/chills, increased weakness, pain, shortness of breath, chest pain or for any other symptoms concerning for you. It has been a pleasure being a part of the medical team providing for you while you have been in the hospital. Take care! Pending Studies at Discharge: Yes Studies:: Repeat blood cultures -- no growth to date Prior blood cultures -- no further growth except 1/4 bottles (suspected contaminant) Anaplasmosis/Babesiosis DNA PCR, CMV, EBV, hepatitis panel Stand-Alone Forms: [facility], Smoking Cessation Medications and DC Order Prescriptions: New doxycycline hyclate 100 mg Capsule 100 mg PO BID 5 Days Qty: 10 0RF amoxicillin-pot clavulanate 875-125 mg tablet 1 tab PO BID 7 Days Qty: 14 0RF Continued metformin 500 mg tablet 500 mg PO BID 90 Days Qty: 180 3RF solifenacin [Vesicare] 5 mg tablet 5 mg PO DAILY Qty: 90 3RF tamsulosin [Flomax] 0.4 mg capsule 0.4 mg PO DAILY Qty: 90 3RF cyanocobalamin (vitamin B-12) 5,000 mcg capsule 5,000 mcg PO DAILY Qty: 360 12RF omega 3-nhd-jtu-fish oil [Fish Oil] 1,000 mg (120 mg-180 mg) capsule 1 cap PO BID acetaminophen 500 mg capsule 1,000 mg PO DIRECTED PRN (Reason: Pain) aspirin [Enedina Low Dose Aspirin] 81 mg tablet,delayed release (DR/EC) 81 mg PO QAM Rx Instructions: Take to prevent blood clots. metoprolol succinate 25 mg tablet extended release 24 hr 25 mg PO DAILY Qty: 30 11RF Held ezetimibe 10 mg tablet 10 mg PO DAILY Qty: 90 3RF Hold Instructions: Resume on 09/27/23. simvastatin 80 mg tablet 80 mg PO DAILY Qty: 90 3RF Hold Instructions: Resume on 09/27/23. Discharge Orders: Discharge Order (Routine); Ordered 09/20/23 Ordered By: Liz Guzman Admission Data Admit Date/Time: 09/18/23 15:31 Attending Provider: Mark Ramos Admit Provider: Thanh Quintero Primary Care Provider: John Floyd III Other Providers: Thanh Quintero Other Interventions: Discharge Summary Assessment (RN) Last Done: 09/20/23 14:01 Supervising Physician Co-Signing Physician Notes The patient was not seen by me. The chart was reviewed. Case discussed with EILEEN Sanchez. Agree with assessment and plan Coding Level of Care Code 35086 INP/OBS DISCH >30 MIN Diagnoses Pneumonia J18.9 Prediabetes R73.03 Transaminitis R74.01 Left lower lobe pneumonia J18.9 Pneumonia type: due to unspecified organism Weakness R53.1
[2023-09-20 13:45] LABS: HepB Surface Ag with confirm Negative (Negative)
[2023-09-20 13:50] LABS: HepC Ab Rflx HepCQuant RNA Negative (Negative)
[2023-09-22 20:12] LABS: Babesia microti DNA Not Detected (Not Detected)
[2023-09-23 14:07] LABS: EBV Virus Capsid Ag IgG Ab >750.00 U/mL
[2023-09-23 14:16] LABS: CMV IgM Antibody <30.00 AU/mL; Hepatitis A Antibody IgM NON-REACTIVE (NON-REACTIVE); Hepatitis B Core Antibody IgM REACTIVE (NON-REACTIVE)
== END 2023-09-20 15:13 | disposition home or self-care (01) ==
LOC: ED 10:44 → 3N 15:11 → SUATTDRO 15:31 → INTOOBSV 15:31 → 3N 15:31